=== PATIENT | female | born 1935 | race Two or more races ===

== ENCOUNTER 2023-08-16 08:28 | Emergency (ER) | payer OTHER ==
[~2023-08-16] VITALS: Ht 149.9 cm; Wt 63.7 kg
[2023-08-16 09:16] LABS: Basophils # (auto) 0.1 10 ^3/uL (0-0.2); Basophils % (auto) 1.2 % (0.0-2.0); Eosinophils # (auto) 0.2 10 ^3/uL (0-0.8); Eosinophils % (auto) 3.5 % (0.0-7.0); Hematocrit 40.2 % (36.0-46.0); Lymphocytes # (auto) 2.4 10 ^3/uL (0.4-5.4); Lymphocytes % (auto) 34.8 % (10.0-50.0); Mean Corpuscular Hgb Conc. 32.4 g/dL (32.0-36.0); Mean Corpuscular Volume 83.2 fL (80.0-100.0); Monocytes # (auto) 0.6 10 ^3/uL (0-1.3); Monocytes % (auto) 8.1 % (0.0-12.0); Neutrophils # (auto) 3.6 10 ^3/uL (1.6-8.6); Neutrophils % (auto) 52.4 % (37.0-80.0); Nucleated Red Blood Cells % 0.1 %; Red Blood Cells 4.84 10^6/uL (4.0-5.20); Red Cell Distribution Width 15.1 % (11.8-14.3); White Blood Cell 6.9 10^3/uL (4.4-10.8)
[2023-08-16 09:27] LABS: Albumin 4.5 g/dL (3.2-4.8); Alkaline Phosphatase 80 U/L (46-116); Anion Gap 5 (5-15); Aspartate Aminotransferase 12 U/L (13-40); BUN/Creatinine Ratio 19.6 (10.0-20.0); Bilirubin, Total 0.3 mg/dL (0.2-1.0); Blood Urea Nitrogen 20 mg/dL (9-23); Calcium 9.8 mg/dL (8.5-10.1); Carbon Dioxide 29 mmol/L (20-30); Chloride 105 mmol/L (98-107); Glucose 120 mg/dL (74-106); Potassium 4.4 mmol/L (3.5-5.1); Sodium 139 mmol/L (136-145); Total Protein 7.2 g/dL (5.7-8.2)
[2023-08-16 09:28] LABS: INR 0.99 (0.9-1.15); Partial Thromboplastin Time 29.6 SEC (24.5-34.5); Prothrombin Time 10.4 sec (9.3-11.8)
[2023-08-16 09:30] LABS: Alanine Aminotransferase < 9 U/L (7-40)
[2023-08-16 09:47] LABS: Urine Bacteria NONE SEEN /hpf (None Seen); Urine Blood Negative /uL (Negative); Urine Clarity Clear (Clear); Urine Color Yellow (Yellow); Urine Protein, UAD TRACE (Negative); Urine Specific Gravity 1.022 (1.001-1.035); Urine Urobilinogen Normal (Negative); Urine WBC 2 /hpf (0 - 5); Urine pH 5.5 (5.0-8.0)
[2023-08-16 10:51] LABS: Magnesium 1.7 mg/dL (1.6-2.6)
[2023-08-16 11:04] VITALS: BP 102/55; PULSE 77; RESP 15; TEMP 98; O2SAT 99
== END 2023-08-16 11:07 | disposition home or self-care (01) ==
LOC: ER 08:28
DX: R25.3 Fasciculation (principal); I10 Essential (primary) hypertension; E78.5 Hyperlipidemia, unspecified; Z86.73 Personal history of transient ischemic attack (TIA), and cerebral infarction without residual deficits; Z98.890 Other specified postprocedural states; Z88.8 Allergy status to other drugs, medicaments and biological substances; Z86.2 Personal history of diseases of the blood and blood-forming organs and certain disorders involving the immune mechanism
CPT/HCPCS: 36415; 70450; 71045; 80053; 81001; 83735; 85025; 85610; 85730; 93005

== ENCOUNTER 2023-08-19 03:55 | Emergency (ER) | payer OTHER ==
[2023-08-19 04:22] VITALS: BP 135/58; PULSE 76; RESP 16; TEMP 97.7
[2023-08-19] MEDS ORDERED: LORATADINE 10 MG TAB PO ONE (06:00)
[2023-08-19] MEDS ORDERED: DexAMETHasone SOD PHOS 10MG/1ML VIAL INJ IM ONE (06:00)
[2023-08-19] MEDS ORDERED: LORA10CA PO (06:01)
[2023-08-19] MEDS ORDERED: PRE5T PO (06:01)
[2023-08-19 06:16] VITALS: O2SAT 97
== END 2023-08-19 07:08 | disposition home or self-care (01) ==
LOC: ER 03:55
DX: T78.40XA Allergy, unspecified, initial encounter (principal); I10 Essential (primary) hypertension; E78.5 Hyperlipidemia, unspecified; Z86.73 Personal history of transient ischemic attack (TIA), and cerebral infarction without residual deficits; Z95.1 Presence of aortocoronary bypass graft; Z90.49 Acquired absence of other specified parts of digestive tract; Z95.0 Presence of cardiac pacemaker; Z88.5 Allergy status to narcotic agent; Y92.89 Other specified places as the place of occurrence of the external cause
CPT/HCPCS: 96372; 99283; J1100

== ENCOUNTER 2024-06-17 20:44 | Inpatient (IN) | payer BC, OTHER ==
[~2024-06-17] VITALS: Ht 154.9 cm; Wt 69.9 kg
[~2024-06-17 20:44] MED LIST: ALBU108A5 IN; ATOR-507 PO; CARV3.1240 PO; CEPH500C PO; DOXY100C4 PO; EZET10TA22 PO; LEVO100T8 PO; LORA10CA PO; METF-370 PO; METO5TAB2 PO; OMEP1CAP70 PO; OXYC325T14 PO; PRE5T PO; ZOFR4T PO
[2024-06-17] MEDS: VANCOMYCIN 1GM/200ML 200 ML IV ONE (21:00)
[2024-06-17] MEDS: PIPERACILLIN-TAZO 4.5GM 100 ML IV ONE (21:23)
[2024-06-17] MEDS: ACETAMINOPHEN 500 MG TAB PO ONE (21:23)
[2024-06-17 21:33] LABS: Basophils # (auto) 0 10 ^3/uL (0-0.2); Basophils % (auto) 0.1 % (0.0-2.0); Eosinophils # (auto) 0.3 10 ^3/uL (0-0.8); Eosinophils % (auto) 3.4 % (0.0-7.0); Hematocrit 34.2 % (36.0-46.0); Hemoglobin 11.4 g/dL (12.2-16.2); Lymphocytes # (auto) 1.4 10 ^3/uL (0.4-5.4); Lymphocytes % (auto) 13.8 % (10.0-50.0); Mean Corpuscular Hemoglobin 27.9 pg (28.0-32.0); Mean Corpuscular Hgb Conc. 33.3 g/dL (32.0-36.0); Mean Corpuscular Volume 83.8 fL (80.0-100.0); Monocytes # (auto) 0.7 10 ^3/uL (0-1.3); Monocytes % (auto) 6.4 % (0.0-12.0); Neutrophils # (auto) 7.7 10 ^3/uL (1.6-8.6); Neutrophils % (auto) 76.3 % (37.0-80.0); Nucleated Red Blood Cells % 0.1 %; Platelet Count (auto) 207 10^3/uL (140-450); Red Blood Cells 4.08 10^6/uL (4.0-5.20); Red Cell Distribution Width 14.7 % (11.8-14.3); White Blood Cell 10.1 10^3/uL (4.4-10.8)
[2024-06-17 21:47] LABS: Alanine Aminotransferase 47 U/L (7-40); Albumin 3.7 g/dL (3.2-4.8); Alkaline Phosphatase 190 U/L (46-116); Anion Gap 7 (5-15); Aspartate Aminotransferase 40 U/L (13-40); BUN/Creatinine Ratio 15.6 (10.0-20.0); Bilirubin, Total 0.4 mg/dL (0.2-1.0); Blood Urea Nitrogen 39 mg/dL (9-23); Carbon Dioxide 26 mmol/L (20-30); Chloride 102 mmol/L (98-107); Glucose 95 mg/dL (74-106); Potassium 4.9 mmol/L (3.5-5.1); Sodium 135 mmol/L (136-145); Total Protein 5.9 g/dL (5.7-8.2)
[2024-06-17 21:55] VITALS: RESP 21; O2SAT 100
[2024-06-17] MEDS: NOREPINEPHRINE 8 MG/250ML KIT 250 ML IV SCH (23:30)
[2024-06-17] MEDS: NOREPINEPHRINE 8 MG/250ML KIT 250 ML IV ONE (23:30)
[2024-06-18 01:20] VITALS: RESP 23; O2SAT 100
[2024-06-18] MEDS: ASPirin 325 MG TAB PO ONE (01:38)
[2024-06-18 02:34] LABS: COVID19 ANTIGEN SOFIA FIA NEGATIVE (NEGATIVE); Rapid Influenza A Negative (Negative); Rapid Influenza B Negative (Negative)
[2024-06-18 02:57] LABS: Urine Bacteria None Seen /hpf (None Seen)
[2024-06-18 03:07] LABS: Urine Blood Negative /uL (Negative); Urine Clarity Turbid (Clear); Urine Color Yellow (Yellow); Urine Protein, UAD 1+ (Negative); Urine Urobilinogen 3 mg/dL (Negative); Urine WBC 15 /hpf (0 - 5)
[2024-06-18 03:11] LABS: Urine Specific Gravity 1.045 (1.001-1.035)
[2024-06-18] MEDS ORDERED: DOCUSATE SOD 100 MG CAP PO PRN (03:15)
[2024-06-18] MEDS ORDERED: NITROGLYCERIN 0.4 MG SL TAB SL PRN (03:15)
[2024-06-18] MEDS ORDERED: MORPHINE SULFATE INJ 2 MG/ml SYRG IV PRN ×2 (03:15)
[2024-06-18] MEDS ORDERED: HYDROcodone-ACET 5/325MG TAB PO PRN (03:15)
[2024-06-18] MEDS: NOREPINEPHRINE 8 MG/250ML KIT 250 ML IV SCH (03:30)
[2024-06-18] MEDS: SODIUM CHLORIDE 0.9% 1,000 ML IV SCH (03:51)
[2024-06-18] MEDS: ACETAMINOPHEN 325 MG TAB PO PRN (07:11)
[2024-06-18 07:15] VITALS: PULSE 68; RESP 20; O2SAT 100
[2024-06-18] MEDS: PIPERACILLIN-TAZOB 3.375GM 100 ML IV SCH (08:12)
[2024-06-18 15:45] LABS: Chloride 103 mmol/L (98-107); Potassium 4.5 mmol/L (3.5-5.1); Sodium 133 mmol/L (136-145)
[2024-06-18 15:46] LABS: Anion Gap 12 (5-15); Calcium 8.5 mg/dL (8.7-10.4); Carbon Dioxide 18 mmol/L (20-30)
[2024-06-18 15:51] LABS: BUN/Creatinine Ratio 14.1 (10.0-20.0); Blood Urea Nitrogen 43 mg/dL (9-23); Glucose 119 mg/dL (74-106)
[2024-06-18 15:52] LABS: Magnesium 1.8 mg/dL (1.6-2.6)
[2024-06-18 15:54] LABS: Phosphorus 4.9 mg/dL (2.4-5.1)
[2024-06-18 19:29] VITALS: PULSE 70; RESP 16; O2SAT 100
[2024-06-19] MEDS: ONDANSETRON HCL 4 MG/2 ML VIAL IV PRN (03:20)
[2024-06-19] MEDS: LEVOTHYROXINE SODIUM 100 MCG TAB PO SCH (05:45)
[2024-06-19 05:59] LABS: Basophils # (auto) 0 10 ^3/uL (0-0.2); Basophils % (auto) 0.4 % (0.0-2.0); Eosinophils # (auto) 0.5 10 ^3/uL (0-0.8); Eosinophils % (auto) 5.6 % (0.0-7.0); Hematocrit 32.4 % (36.0-46.0); Hemoglobin 10.4 g/dL (12.2-16.2); Lymphocytes # (auto) 1.7 10 ^3/uL (0.4-5.4); Lymphocytes % (auto) 17.8 % (10.0-50.0); Mean Corpuscular Hgb Conc. 32.3 g/dL (32.0-36.0); Mean Corpuscular Volume 86.6 fL (80.0-100.0); Monocytes # (auto) 0.6 10 ^3/uL (0-1.3); Monocytes % (auto) 6.4 % (0.0-12.0); Neutrophils # (auto) 6.7 10 ^3/uL (1.6-8.6); Neutrophils % (auto) 69.8 % (37.0-80.0); Platelet Count (auto) 170 10^3/uL (140-450); Red Blood Cells 3.74 10^6/uL (4.0-5.20); White Blood Cell 9.6 10^3/uL (4.4-10.8)
[2024-06-19 06:20] LABS: Alanine Aminotransferase 25 U/L (7-40); Albumin 3.3 g/dL (3.2-4.8); Alkaline Phosphatase 132 U/L (46-116); Anion Gap 14 (5-15); Aspartate Aminotransferase 15 U/L (13-40); BUN/Creatinine Ratio 14.1 (10.0-20.0); Blood Urea Nitrogen 39 mg/dL (9-23); Carbon Dioxide 13 mmol/L (20-30); Chloride 108 mmol/L (98-107); Glucose 83 mg/dL (74-106); Potassium 4.2 mmol/L (3.5-5.1); Sodium 135 mmol/L (136-145)
[2024-06-19 06:21] LABS: Bilirubin, Total 0.3 mg/dL (0.2-1.0); Total Protein 5.4 g/dL (5.7-8.2)
[2024-06-19 07:30] VITALS: PULSE 70; RESP 15; O2SAT 98
[2024-06-19 07:46] LABS: Urine Bacteria None Seen /hpf (None Seen)
[2024-06-19 08:07] LABS: Urine Blood 2+ /uL (Negative); Urine Budding Yeast MODERATE /hpf (None Seen); Urine Clarity Turbid (Clear); Urine Color Light-Yellow (Yellow); Urine Protein, UAD 1+ (Negative); Urine Specific Gravity 1.017 (1.001-1.035); Urine Urobilinogen Normal (Negative); Urine WBC 15 /hpf (0 - 5); Urine WBC Clumps PRESENT /hpf (None Seen); Urine pH 5.5 (5.0-9.0)
[2024-06-19] MEDS: ASPirin 81 mg TAB PO SCH (10:00)
[2024-06-19] MEDS: ENOXAPARIN SOD 30 MG/0.3 ML SYRINGE SC SCH (10:00)
[2024-06-19 19:35] VITALS: PULSE 68; RESP 14; O2SAT 100
[2024-06-20 06:34] LABS: Alanine Aminotransferase 20 U/L (7-40); Albumin 3.4 g/dL (3.2-4.8); Alkaline Phosphatase 116 U/L (46-116); Anion Gap 8 (5-15); Aspartate Aminotransferase 11 U/L (13-40); Bilirubin, Total 0.2 mg/dL (0.2-1.0); Blood Urea Nitrogen 33 mg/dL (9-23); Carbon Dioxide 21 mmol/L (20-30); Chloride 110 mmol/L (98-107); Glucose 83 mg/dL (74-106); Potassium 3.9 mmol/L (3.5-5.1); Sodium 139 mmol/L (136-145); Total Protein 5.5 g/dL (5.7-8.2)
[2024-06-20 06:44] LABS: Basophils # (auto) 0 10 ^3/uL (0-0.2); Basophils % (auto) 0.3 % (0.0-2.0); Eosinophils # (auto) 0.4 10 ^3/uL (0-0.8); Eosinophils % (auto) 5.9 % (0.0-7.0); Hematocrit 30.9 % (36.0-46.0); Hemoglobin 10.2 g/dL (12.2-16.2); Lymphocytes # (auto) 1.3 10 ^3/uL (0.4-5.4); Lymphocytes % (auto) 20.4 % (10.0-50.0); Mean Corpuscular Hgb Conc. 32.9 g/dL (32.0-36.0); Mean Corpuscular Volume 84.9 fL (80.0-100.0); Monocytes # (auto) 0.4 10 ^3/uL (0-1.3); Monocytes % (auto) 6.3 % (0.0-12.0); Neutrophils # (auto) 4.3 10 ^3/uL (1.6-8.6); Neutrophils % (auto) 67.1 % (37.0-80.0); Platelet Count (auto) 156 10^3/uL (140-450); Red Blood Cells 3.64 10^6/uL (4.0-5.20); Red Cell Distribution Width 14.5 % (11.8-14.3); White Blood Cell 6.3 10^3/uL (4.4-10.8)
[2024-06-20 06:53] LABS: Calcium 8.6 mg/dL (8.7-10.4)
[2024-06-20 07:31] VITALS: PULSE 60; RESP 17; O2SAT 98
[2024-06-20 11:56] VITALS: O2SAT 95
[2024-06-20] MEDS: SODIUM CHLORIDE 0.9% 1,000 ML IV SCH (12:00)
[2024-06-20 13:00] VITALS: BP 128/42; PULSE 65; RESP 18; TEMP 98.3; O2SAT 100
[2024-06-20 17:00] VITALS: BP 97/31; PULSE 63; RESP 20; TEMP 97.8; O2SAT 100
[2024-06-20 20:00] VITALS: PULSE 74; PULSE 82; RESP 18; O2SAT 95
[2024-06-20 21:00] VITALS: BP 125/39; PULSE 65; RESP 18; TEMP 97.8; O2SAT 100
[2024-06-21] VITALS (8 sets, daily range): BP systolic 100–133; BP diastolic 48–65; PULSE 60–77; RESP 16–21; TEMP 97–98.7; O2SAT 95–99
[2024-06-21 07:24] LABS: Chloride 110 mmol/L (98-107); Potassium 3.6 mmol/L (3.5-5.1); Sodium 138 mmol/L (136-145)
[2024-06-21 07:25] LABS: Anion Gap 5 (5-15); Carbon Dioxide 23 mmol/L (20-30)
[2024-06-21 07:26] LABS: Calcium 8.4 mg/dL (8.7-10.4)
[2024-06-21 07:31] LABS: BUN/Creatinine Ratio 16.5 (10.0-20.0); Blood Urea Nitrogen 21 mg/dL (9-23); Glucose 100 mg/dL (74-106)
[2024-06-21] MEDS: SODIUM CHLORIDE 0.9% 1,000 ML IV SCH (19:30)
[2024-06-22] MEDS: FLUCONAZOLE 100 MG TAB PO ONE (00:48)
[2024-06-22 08:00] VITALS: PULSE 61; RESP 18
[2024-06-22 09:00] VITALS: BP 114/51; PULSE 64; RESP 21; TEMP 97.5; O2SAT 95
[2024-06-22 11:13] LABS: Chloride 108 mmol/L (98-107); Potassium 3.8 mmol/L (3.5-5.1); Sodium 138 mmol/L (136-145)
[2024-06-22 11:14] LABS: Anion Gap 7 (5-15); Calcium 8.9 mg/dL (8.7-10.4); Carbon Dioxide 23 mmol/L (20-30)
[2024-06-22 11:19] LABS: BUN/Creatinine Ratio 11.7 (10.0-20.0); Blood Urea Nitrogen 12 mg/dL (9-23); Glucose 114 mg/dL (74-106)
[2024-06-22 11:40] LABS: Basophils # (auto) 0 10 ^3/uL (0-0.2); Basophils % (auto) 0.6 % (0.0-2.0); Eosinophils # (auto) 0.4 10 ^3/uL (0-0.8); Eosinophils % (auto) 4.9 % (0.0-7.0); Hematocrit 32.6 % (36.0-46.0); Hemoglobin 10.7 g/dL (12.2-16.2); Lymphocytes % (auto) 24.1 % (10.0-50.0); Mean Corpuscular Hemoglobin 28.3 pg (28.0-32.0); Mean Corpuscular Hgb Conc. 32.9 g/dL (32.0-36.0); Mean Corpuscular Volume 86.2 fL (80.0-100.0); Monocytes # (auto) 0.7 10 ^3/uL (0-1.3); Monocytes % (auto) 8.3 % (0.0-12.0); Neutrophils # (auto) 5.2 10 ^3/uL (1.6-8.6); Neutrophils % (auto) 62.1 % (37.0-80.0); Nucleated Red Blood Cells % 0.1 %; Platelet Count (auto) 154 10^3/uL (140-450); Red Blood Cells 3.78 10^6/uL (4.0-5.20); Red Cell Distribution Width 15.3 % (11.8-14.3); White Blood Cell 8.4 10^3/uL (4.4-10.8)
[2024-06-22 13:00] VITALS: BP 116/44; PULSE 64; RESP 20; TEMP 98.2; O2SAT 93
[2024-06-22 17:00] VITALS: BP 127/53; PULSE 60; RESP 17; TEMP 97.3; O2SAT 100
[2024-06-22 20:00] VITALS: PULSE 61; PULSE 66; RESP 18
[2024-06-22 21:00] VITALS: BP 116/46; PULSE 67; RESP 14; TEMP 97.7; O2SAT 100
[2024-06-23 05:00] VITALS: BP 105/56; PULSE 56; RESP 18; TEMP 97; O2SAT 99
[2024-06-23 08:00] VITALS: PULSE 64; RESP 18
[2024-06-23 09:00] VITALS: PULSE 65; RESP 17; TEMP 98.1; O2SAT 96
[2024-06-23 13:00] VITALS: BP 122/42; PULSE 67; RESP 19; TEMP 98.1; O2SAT 99
[2024-06-23 17:00] VITALS: BP 140/58; PULSE 77; RESP 19; TEMP 97.6; O2SAT 98
[2024-06-23 20:00] VITALS: PULSE 69
[2024-06-24] VITALS (8 sets, daily range): BP systolic 108–150; BP diastolic 33–64; PULSE 60–73; RESP 15–20; TEMP 97.3–98.3; O2SAT 95–100
[2024-06-25] VITALS (8 sets, daily range): BP systolic 117–156; BP diastolic 36–71; PULSE 66–81; RESP 14–20; TEMP 97.4–99.1; O2SAT 90–100
[2024-06-25] MEDS: SODIUM CHLORIDE 0.9% 1,000 ML IV SCH (00:45)
[2024-06-25] MEDS: PIPERACILLIN-TAZOB 3.375GM 100 ML IV SCH (02:06)
[2024-06-25 07:31] LABS: Basophils # (auto) 0.1 10 ^3/uL (0-0.2); Basophils % (auto) 1.2 % (0.0-2.0); Eosinophils # (auto) 0.4 10 ^3/uL (0-0.8); Eosinophils % (auto) 6.2 % (0.0-7.0); Hematocrit 28.6 % (36.0-46.0); Hemoglobin 9.7 g/dL (12.2-16.2); Lymphocytes # (auto) 1.9 10 ^3/uL (0.4-5.4); Lymphocytes % (auto) 26.7 % (10.0-50.0); Mean Corpuscular Hemoglobin 28.5 pg (28.0-32.0); Mean Corpuscular Volume 83.9 fL (80.0-100.0); Monocytes # (auto) 0.9 10 ^3/uL (0-1.3); Monocytes % (auto) 12.1 % (0.0-12.0); Neutrophils # (auto) 3.9 10 ^3/uL (1.6-8.6); Neutrophils % (auto) 53.8 % (37.0-80.0); Nucleated Red Blood Cells % 0.1 %; Platelet Count (auto) 198 10^3/uL (140-450); Red Blood Cells 3.42 10^6/uL (4.0-5.20); Red Cell Distribution Width 14.7 % (11.8-14.3); White Blood Cell 7.2 10^3/uL (4.4-10.8)
[2024-06-25 07:32] LABS: Chloride 107 mmol/L (98-107); Potassium 3.9 mmol/L (3.5-5.1); Sodium 140 mmol/L (136-145)
[2024-06-25 07:33] LABS: Anion Gap 5 (5-15); Calcium 8.7 mg/dL (8.7-10.4); Carbon Dioxide 28 mmol/L (20-30)
[2024-06-25 07:38] LABS: Glucose 99 mg/dL (74-106)
[2024-06-25 08:32] LABS: BUN/Creatinine Ratio 6.2 (10.0-20.0); Blood Urea Nitrogen < 5 mg/dL (9-23)
[2024-06-26] VITALS (8 sets, daily range): BP systolic 100–152; BP diastolic 48–67; PULSE 69–76; RESP 18–20; TEMP 97.6–98.6; O2SAT 90–100
[2024-06-26] MEDS: FUROSEMIDE 20 MG TAB PO ONE (17:49)
[2024-06-27] VITALS (8 sets, daily range): BP systolic 94–144; BP diastolic 37–86; PULSE 62–92; RESP 17–21; TEMP 97.9–98.1; O2SAT 92–100
[2024-06-27 06:59] LABS: Basophils # (auto) 0.1 10 ^3/uL (0-0.2); Eosinophils # (auto) 0.4 10 ^3/uL (0-0.8); Eosinophils % (auto) 6.2 % (0.0-7.0); Hematocrit 30.4 % (36.0-46.0); Hemoglobin 10.2 g/dL (12.2-16.2); Lymphocytes # (auto) 1.3 10 ^3/uL (0.4-5.4); Lymphocytes % (auto) 21.2 % (10.0-50.0); Mean Corpuscular Hemoglobin 28.2 pg (28.0-32.0); Mean Corpuscular Hgb Conc. 33.5 g/dL (32.0-36.0); Monocytes # (auto) 0.7 10 ^3/uL (0-1.3); Monocytes % (auto) 12.2 % (0.0-12.0); Neutrophils # (auto) 3.6 10 ^3/uL (1.6-8.6); Neutrophils % (auto) 59.4 % (37.0-80.0); Nucleated Red Blood Cells % 0.1 %; Platelet Count (auto) 208 10^3/uL (140-450); Red Blood Cells 3.62 10^6/uL (4.0-5.20); Red Cell Distribution Width 14.8 % (11.8-14.3); White Blood Cell 6.1 10^3/uL (4.4-10.8)
[2024-06-27 07:11] LABS: Anion Gap 5 (5-15); Carbon Dioxide 35 mmol/L (20-30); Chloride 101 mmol/L (98-107); Potassium 3.3 mmol/L (3.5-5.1); Sodium 141 mmol/L (136-145)
[2024-06-27 07:12] LABS: Calcium 8.6 mg/dL (8.7-10.4)
[2024-06-27 07:17] LABS: BUN/Creatinine Ratio 5.8 (10.0-20.0); Blood Urea Nitrogen 5 mg/dL (9-23); Glucose 87 mg/dL (74-106)
[2024-06-27] MEDS: FUROSEMIDE 20 MG TAB PO SCH (09:47)
[2024-06-27] MEDS: FLUCONAZOLE 100 MG TAB PO SCH (09:48)
[2024-06-27 15:30] LABS: COVID19 ANTIGEN SOFIA FIA NEGATIVE (NEGATIVE)
[2024-06-27] MEDS: Ensure Enlive Strawberry 8oz Bottle PO SCH (18:00)
[2024-06-28] VITALS (7 sets, daily range): BP systolic 113–148; BP diastolic 39–67; PULSE 63–89; RESP 16–18; TEMP 97.3–98.7; O2SAT 92–99
[2024-06-29] VITALS (9 sets, daily range): BP systolic 104–133; BP diastolic 37–95; PULSE 63–78; RESP 16–20; TEMP 97.8–98.2; O2SAT 88–99
[2024-06-30 01:00] VITALS: BP 119/46; PULSE 77; RESP 16; TEMP 98.9; O2SAT 100
[2024-06-30 05:00] VITALS: BP 133/56; PULSE 63; RESP 20; TEMP 97.9; O2SAT 100
[2024-06-30 08:00] VITALS: PULSE 43; PULSE 71; RESP 17; O2SAT 91
[2024-06-30 09:10] VITALS: BP 157/56; PULSE 71; RESP 17; TEMP 98; O2SAT 91
[2024-06-30] MEDS ORDERED: MAGN400T6 PO (11:52)
[2024-06-30] MEDS ORDERED: [UNRECOGNIZED DRUG - CODE] PO (11:52)
[2024-06-30 13:21] VITALS: BP 119/51; PULSE 74; RESP 17; TEMP 98; O2SAT 91
== END 2024-06-30 14:45 | disposition home or self-care (01) | DRG 871 ==
LOC: ER 20:44 → EDBD 20:44 → TELE 06-18 03:17 → TELE-CENTR 06-20 11:28
PROVIDERS: ADMIT Internal Medicine; ATTEND Nurse Practitioner
PROC: 4B02XSZ Measurement of Cardiac Pacemaker, External Approach (ICD-10-PCS; principal; 2024-06-23)
DX: A41.9 Sepsis, unspecified organism (principal); G93.41 Metabolic encephalopathy; N17.0 Acute kidney failure with tubular necrosis; R65.21 Severe sepsis with septic shock; I21.A1 Myocardial infarction type 2; N39.0 Urinary tract infection, site not specified; E87.1 Hypo-osmolality and hyponatremia; I50.32 Chronic diastolic (congestive) heart failure; I13.0 Hypertensive heart and chronic kidney disease with heart failure and stage 1 through stage 4 chronic kidney disease, or unspecified chronic kidney disease; D50.9 Iron deficiency anemia, unspecified; E03.9 Hypothyroidism, unspecified; E78.5 Hyperlipidemia, unspecified; I48.91 Unspecified atrial fibrillation; I25.10 Atherosclerotic heart disease of native coronary artery without angina pectoris; N18.31 Chronic kidney disease, stage 3a; E66.01 Morbid (severe) obesity due to excess calories; I27.20 Pulmonary hypertension, unspecified; Z20.822 Contact with and (suspected) exposure to COVID-19; K21.9 Gastro-esophageal reflux disease without esophagitis; R62.7 Adult failure to thrive; I08.1 Rheumatic disorders of both mitral and tricuspid valves; R26.9 Unspecified abnormalities of gait and mobility; Z95.1 Presence of aortocoronary bypass graft; Z88.5 Allergy status to narcotic agent; Z86.73 Personal history of transient ischemic attack (TIA), and cerebral infarction without residual deficits; Z90.49 Acquired absence of other specified parts of digestive tract; Z95.0 Presence of cardiac pacemaker; Z87.891 Personal history of nicotine dependence; Z79.82 Long term (current) use of aspirin; Z68.29 Body mass index [BMI] 29.0-29.9, adult; Z95.2 Presence of prosthetic heart valve
CPT/HCPCS: 36415; 71045; 71250; 74176; 76775; 80048; 80053; 81001; 83036; 83605; 83735; 83880; 84100; 84439; 84443; 84484; 85025; 87040; 87086; 87088; 87426; 87804; 93005; 93306; 96365; 97110; 97116; 97163; 97530; 99291; G0378; J2405; J2543

== ENCOUNTER 2024-09-07 15:17 | Inpatient (IN) | payer BC, MEDICAID ==
[~2024-09-07] VITALS: Ht 144.8 cm; Wt 69.0 kg
[~2024-09-07 15:17] MED LIST changes: -LORA10CA PO; +MAGN400T6 PO; -PRE5T PO; +[UNRECOGNIZED DRUG - CODE] PO
--- NOTE | 2024-09-07 15:31 | ED.PDOC ---
HPI Comments pt had a pacer placed in jun. she fell afterward, but did not have pain till today Chief Complaint: Chest Pain Comments pain is worsened by movement. no injuries Time Seen by MD: 15:25 Primary Care Provider: BARRIE Allergies: Coded Allergies: Morphine (Verified Allergy, Unknown, 08/16/23) Home Meds Active Scripts Nutritional Supplements (Boost) But Pecn Liq, 1 PECN PO DAILY for 30 Days, #30 LIQ 3 Refills requesting chocolate Prov:JO ORDONEZ José Miguel BRAIDER OPERATOR 06/30/24 Magnesium Oxide (Magnesium Oxide) 400 Mg Tab, 400 MG PO DAILY for 30 Days, #30 TAB Prov:JO ORDONEZ José Miguel BRAIDER OPERATOR 06/30/24 Reported Medications Doxycycline Hyclate (Doxycycline Hyclate) 100 Mg Cap, 1 TAB PO BID for 7 Days, #14 06/20/24 Oxycodone W/ Acetaminophen (Apap/Oxycodone) 1 Tab Tab, 1 TAB PO UD for 7 Days, #30 06/20/24 Ondansetron Odt 4MG Tab (ZOFRAN PO) 4 Mg Tb, 4 MG PO UD for 15 Days, #30 ODT TAB-DISSOLVE IN MOUTH, THEN SWALLOW 06/20/24 Albuterol Sulfate (Albuterol Sulfate Hfa) 108 Mcg/Act Aer, 108 MCG IN UD for 33 Days, #6.7 06/20/24 Metoclopramide Hcl (Metoclopramide Hcl) 5 Mg Tab, 5 MG PO UD for 7 Days, #30 06/20/24 Cephalexin Monohydrate (Cephalexin) 500 Mg Cap, 1 CAP PO QID for 7 Days, #28 06/20/24 Carvedilol (Carvedilol) 3.125 Mg Tab, 1 TAB PO BID for 90 Days, #180 06/20/24 Levothyroxine Sodium (Levothyroxine Sodium) 100 Mcg Tab, 1 TAB PO DAILY for 90 Days, #90 06/20/24 Atorvastatin Calcium (Lipitor) 40 Mg Tab, 1 TAB PO DAILY for 90 Days, #90 06/20/24 Omeprazole (Omeprazole Dr) 20 Mg Cap, 1 CAP PO BID for 30 Days, #60 06/20/24 Ezetimibe (Zetia) 10 Mg Tab, 1 TAB PO DAILY for 30 Days, #30 06/20/24 Metformin Hydrochloride (Metformin Hcl) 500 Mg Tab, 1 TAB PO DAILY for 30 Days, #30 06/20/24 Information Source: Patient Mode of Arrival: Ambulatory Severity: Moderate Timing: Hours Duration: Since onset Location: Chest (L) Quality: Sharp Onset: At Rest Cardiac Risk Factors: Hyperlipidemia, HTN, Diabetes PE Risk Factors: None History of: None Modifying Factors: Movement, Other (palpation) Associated Signs and Symptoms: SOB, Other (bilatereal hands numb) Past Medical History PAST MEDICAL HISTORY: AFIB, High Lipids, HTN, Thyroid, TIA, UTI'S Past Medical History (Other): CTS, bilateral Surgical History: CABG, Cholecystectomy, Pacemaker, PTCA CASER IN History: Denies all CASER IN Hx Family History Family History: Reviewed,noncontributory to illness Social History Smoker: Non-Smoker Alcohol: Denies ETOH Use Drugs: Denies Drug Use Lives In: Home Constitutional: denies: chills, diaphoresis, fatigue, fever, malaise, sweats, weakness, others EENTM: denies: blurred vision, double vision, ear bleeding, ear discharge, ear drainage, ear pain, ear ringing, eye pain, eye redness, hearing loss, mouth pain, mouth swelling, nasal discharge, nose bleeding, nose congestion, nose pain, photophobia, tearing, throat pain, throat swelling, voice changes, others Respiratory: denies: cough, hemoptysis, orthopnea, SOB at rest, shortness of breath, SOB with excertion, stridor, wheezing, others Cardiovascular: reports: chest pain; denies: dizzy spells, diaphoresis, Dyspnea on exertion, edema, irregular heart beat, left arm pain, lightheadedness, p alpitations, PND, syncope, others Gastrointestinal: denies: abdomen distended, abdominal pain, blood streaked bowels, constipated, diarrhea, dysphagia, difficulty swallowing, hematemesis, melena, nausea, poor appetite, poor fluid intake, rectal bleeding, rectal pain, vomiting, others Genitourinary: denies: abnormal vagina bleeding, burning, dyspareunia, dysuria, flank pain, frequency, hematuria, incontinence, pain, , vagina discharge, urgency, others Neurological: reports: numbness (hands); denies: dizziness, fainting, headache, left sided numbness, left sided weakness, paresthesia, pre-existing deficit, right sided numbness, right sided weakness, seizure, speech problems, tingling, tremors, weakness, others Musculoskeletal: denies: back pain, gout, joint pain, joint swelling, muscle pain, muscle stiffness, neck pain, others Integumetry: denies: bruises, change in color, change in hair/nails, dryness, laceration, lesions, lumps, rash, wounds, others Allergic/Immunocompromised: denies: Difficulty Healing, Frequent Infections, Hives, Itching, others Hematologic/Lymphatic: denies: anemia, blood clots, easy bleeding, easy bruising, swollen glands, others Endocrine: denies: excessive hunger, excessive sweating, excessive thirst, excessive urination, flushing, intolerance to cold, intolerance to heat, unexplained weight gain, unexplained weight loss, others Psychiatric: denies: anxiety, bipolar disorder, depression, hopeless, panic disorder, schizophrenia, sleepless, suicidal, others All Other Systems: Reviewed and Negative Physical Exam General Appearance: No Apparent Distress, Normal HEENT: Normal ENT Inspection, Pharynx Normal, TMs Normal Neck: Full Range of Motion, Non-Tender, Normal, Normal Inspection Respiratory: Chest Non-Tender, Lungs Clear, No Accessory Muscle Use, No Respiratory Distress, Normal Breath Sounds Cardiovascular: No Edema, No JVD, No Murmur, No Gallop, Normal Peripheral Pulses, Regular Rate/Rhythm Breast Exam: Deferred Gastrointestinal: No Organomegaly, Non Tender, No Pulsatile Mass, Normal Bowel Sounds, Soft Genitalia: Deferred Pelvic: Deferred Rectal: Deferred Extremities: No calf tenderness, Normal capillary refill, Normal inspection, Normal range of motion, Non-tender, No pedal edema Musculoskeletal : Extremity Location: Chest Apperance: Normal, Tenderness: Moderate Neurologic: Alert, laundry operator II-XII nml as Tested, No Motor Deficits, Normal Affect, Normal Mood, No Sensory Deficits Cerebellar Function: Normal Reflexes: Normal Skin: Dry, Normal Color, Warm Lymphatic: No Adenopathy EKG EKG : Pulse Rate (adult): 73 [place]: Normal Cardiac Rhythm: NSR Block: RBBB Hypertrophy: LVH ST: Normal Was a procedure done? Was a procedure done?: No CP Differential Dx Differential Diagnosis: N/A Differential Diagnosis: Angina, Aortic dissection, Chest Wall Pain, Cholelithiasis, Costochondritis, Esophageal reflux/spasm, Gastritis, Myocardial Infarction, Pericarditis, Pneumonia, Pneumothorax, Pulmonary Embolus X-Ray, Labs, Meds, VS Vital Signs Date Time Temp Pulse Resp B/P (MAP) Pulse Ox O2 Delivery O2 Flow Rate FiO2 09/07/24 20:18 97.7 70 16 132/69 (90) 96 97.7 09/07/24 19:54 73 09/07/24 16:30 71 09/07/24 15:42 98.0 74 18 151/75 (100) 96 09/07/24 15:22 73 Lab Test 09/07/24 18:25 09/07/24 16:33 09/07/24 16:32 09/07/24 15:25 Range/Units Troponin I High Sensitivity 21 20 19 </=34 ng/L Urine Color Colorless Yellow Urine Clarity Clear Clear Urine pH 6.5 5.0-9.0 Urine Specific [place] 1.007 1.001-1.035 Urine Protein Negative Negative Urine Ketones Negative Negative Urine Blood Negative Negative /uL Urine Nitrite Negative Negative Urine Bilirubin Negative Negative Urine Urobilinogen Normal Negative mg/dL Urine Leukocyte Esterase Negative Negative /uL Urine RBC <1 0 - 4 /hpf Urine WBC 1 0 - 5 /hpf Urine Squamous Epithelial Cells Few <5 /hpf Urine Bacteria Few H None Seen /hpf Urine Glucose Normal Normal mg/dL White Blood Count 7.5 4.4-10.8 10^3/uL Red Blood Count 4.33 4.0-5.20 10^6/uL Hemoglobin 11.7 L 12.2-16.2 g/dL Hematocrit 36.2 36.0-46.0 % Mean Corpuscular Volume 83.7 80.0-100.0 fL Mean Corpuscular Hemoglobin 27.1 L 28.0-32.0 pg Mean Corpuscular Hemoglobin Concent 32.4 32.0-36.0 g/dL Red Cell Distribution Width 14.8 H 11.8-14.3 % Platelet Count 193 140-450 10^3/uL Mean Platelet Volume 6.8 L 6.9-10.8 fL Neutrophils (%) (Auto) 53.9 37.0-80.0 % Lymphocytes (%) (Auto) 33.8 10.0-50.0 % Monocytes (%) (Auto) 8.2 0.0-12.0 % Eosinophils (%) (Auto) 3.2 0.0-7.0 % Basophils (%) (Auto) 0.9 0.0-2.0 % Neutrophils # (Auto) 4.1 1.6-8.6 10 ^3/uL Lymphocytes # (Auto) 2.6 0.4-5.4 10 ^3/uL Monocytes # (Auto) 0.6 0-1.3 10 ^3/uL Eosinophils # (Auto) 0.2 0-0.8 10 ^3/uL Basophils # (Auto) 0.1 0-0.2 10 ^3/uL Nucleated Red Blood Cells 0.1 % Sodium Level 139 136-145 mmol/L Potassium Level 4.1 3.5-5.1 mmol/L Chloride Level 106 98-107 mmol/L Carbon Dioxide Level 27 20-31 mmol/L Anion Gap 6 5-15 Blood Urea Nitrogen 19 9-23 mg/dL Creatinine 0.95 0.550-1.02 mg/dL Glomerular Filtration Rate Calc 57 >90 mL/min BUN/Creatinine Ratio 20.0 10.0-20.0 Serum Glucose 104 74-106 mg/dL Calcium Level 9.9 8.7-10.4 mg/dL [place] [id number] Ph: [phone] DIAGNOSTIC IMAGING Diagnostic Imaging Report : [id number] Signed PATIENT: LISA MACK ACCT: [id number] UNIT: [id number] : 1935 LOC: ER ROOM / BED: / AGE / SEX: 89 / F ADM STATUS: REG ER SERVICE 1527 ORDERING PHYSICIAN: MATIAS BAÑUELOS MD PROCEDURE(s): CXRP - CHEST PORTABLE REASON: cp ORDER NUMBER(s): [id number], ACCESSION NUMBER(s): [id number] XY CHEST PORTABLE, HISTORY: cp COMPARISON: XY CHEST PORTABLE on DOS: 06/17/24, XY CHEST XRAY 1 VIEW on DOS: 08/16/23 XY CHEST PORTABLE on DOS: 06/17/24, XY CHEST XRAY 1 VIEW on DOS: 08/16/23 TECHNICAL DATA: 1 view of the chest was obtained. FINDINGS: Lines and tubes: There is a cardiac pacer. Cardiomediastinal silhouette: normal Pulmonary vasculature: normal Lung expansion: normal Lung airspace: normal Lung interstitium: normal Pleura: normal Pneumothorax: no Bones: Unremarkable Other: Sternotomy wires are noted. IMPRESSION: No acute intrathoracic abnormality. ATED BY: JAMIR CHARLTON MD DICTATED DATE/TIME: 09/07/241611 SIGNED BY: JAMIR CHARLTON MD SIGNED DATE/TIME: 09/07/241611 CC: Time of 1ST Reevaluation: 19:50 Reevaluation 1ST: Improved Patient Education/Counseling: Diagnosis, Treatment, Prognosis, Need For Follow Up Family Education/Counseling: No Family Present Additional Information pt has a history of a pacer, CABG, TIA, afib, HLD, htn, is here for chest pain. she will be admitted for r/o MS her last admission was in jun, per med record review i communicated with medical personnel and consultants Departure 1 Departure Time of Disposition: 19:54 Impression: Primary Impression: Chest pain Qualified Codes: R07.9 - Chest pain, unspecified Disposition: ADMITTED INPATIENT Admit to: Tele Condition: Stable Critical Care Note Critical Care Time?: Yes (55 min-critical care time only) Critical care comment: due to concerns for deterioration of pt's condition, the care required my highest level of attention and readiness. i assessed the pt, ordered the appropriate tests and treatments, reassessed the response to treatments, communicated with medical personnel, consultants, and formulated a treatment plan Stability Stability form required: No Heart Score Heart Score: Heart Score Response (Comments) Value History Moderate Suspicious 1 EKG Normal 0 Age >65 2 Risk Factors >3 or Hx ASHD 2 Troponin Normal limit 0 Total 5 I personally scribed for MATIAS BAÑUELOS MD ([email or web address]) on 09/07/24 at 20:00. Electronically submitted by Krish Knott ([email or web address]). MATIAS BAÑUELOS MD Sep 07, 2024 15:30
[2024-09-07 15:45] LABS: Basophils # (auto) 0.1 10 ^3/uL (0-0.2); Basophils % (auto) 0.9 % (0.0-2.0); Eosinophils # (auto) 0.2 10 ^3/uL (0-0.8); Eosinophils % (auto) 3.2 % (0.0-7.0); Hematocrit 36.2 % (36.0-46.0); Hemoglobin 11.7 g/dL (12.2-16.2); Lymphocytes # (auto) 2.6 10 ^3/uL (0.4-5.4); Lymphocytes % (auto) 33.8 % (10.0-50.0); Mean Corpuscular Hemoglobin 27.1 pg (28.0-32.0); Mean Corpuscular Hgb Conc. 32.4 g/dL (32.0-36.0); Mean Corpuscular Volume 83.7 fL (80.0-100.0); Monocytes # (auto) 0.6 10 ^3/uL (0-1.3); Monocytes % (auto) 8.2 % (0.0-12.0); Neutrophils # (auto) 4.1 10 ^3/uL (1.6-8.6); Neutrophils % (auto) 53.9 % (37.0-80.0); Nucleated Red Blood Cells % 0.1 %; Platelet Count (auto) 193 10^3/uL (140-450); Red Blood Cells 4.33 10^6/uL (4.0-5.20); Red Cell Distribution Width 14.8 % (11.8-14.3); White Blood Cell 7.5 10^3/uL (4.4-10.8)
[2024-09-07 15:51] LABS: Chloride 106 mmol/L (98-107); Potassium 4.1 mmol/L (3.5-5.1); Sodium 139 mmol/L (136-145)
[2024-09-07 15:52] LABS: Anion Gap 6 (5-15); Calcium 9.9 mg/dL (8.7-10.4); Carbon Dioxide 27 mmol/L (20-31)
[2024-09-07 15:57] LABS: Blood Urea Nitrogen 19 mg/dL (9-23); Glucose 104 mg/dL (74-106)
--- NOTE | 2024-09-07 16:14 | DVH ---
XY CHEST PORTABLE, HISTORY: cp COMPARISON: XY CHEST PORTABLE on DOS: 06/17/24, XY CHEST XRAY 1 VIEW on DOS: 08/16/23 XY CHEST PORTABLE on DOS: 06/17/24, XY CHEST XRAY 1 VIEW on DOS: 08/16/23 TECHNICAL DATA: 1 view of the chest was obtained. FINDINGS: Lines and tubes: There is a cardiac pacer. Cardiomediastinal silhouette: normal Pulmonary vasculature: normal Lung expansion: normal Lung airspace: normal Lung interstitium: normal Pleura: normal Pneumothorax: no Bones: Unremarkable Other: Sternotomy wires are noted. IMPRESSION: No acute intrathoracic abnormality.
[2024-09-07 16:39] LABS: Urine Bacteria FEW /hpf (None Seen); Urine Blood Negative /uL (Negative); Urine Clarity Clear (Clear); Urine Color Colorless (Yellow); Urine Protein, UAD Negative (Negative); Urine Specific Gravity 1.007 (1.001-1.035); Urine Urobilinogen Normal (Negative); Urine WBC 1 /hpf (0 - 5); Urine pH 6.5 (5.0-9.0)
--- NOTE | 2024-09-07 18:59 | ECG ---
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
[2024-09-07] MEDS: ASPirin 325 MG TAB PO ONE (20:57)
[2024-09-07] MEDS ORDERED: HYDROcodone-ACET 5/325MG TAB PO PRN (21:00)
[2024-09-07] MEDS ORDERED: DOCUSATE SOD 100 MG CAP PO PRN (21:00)
[2024-09-07] MEDS ORDERED: NITROGLYCERIN 0.4 MG SL TAB SL PRN (21:00)
--- NOTE | 2024-09-07 21:04 | DVHHP2 ---
Admitting Diagnosis: Chest pain History of Present Illness 89 yo female patient c/o chest pain. Patient sts that she had a pacemaker placed in June. She sts that she fell afterwards but did not develop pain until now. While in the emergency department the patient was evaluated by the provider, As per provider: Labs, vital signs, and imagining monitored. Patient will be admitted for further evaluation and treatment. I discussed admission with the patient/family and is in agreement to treatment plan. Allergies: Coded Allergies: Morphine (Verified Allergy, Unknown, 08/16/23) Home Meds Active Scripts Nutritional Supplements (Boost) But Pecn Liq, 1 PECN PO DAILY for 30 Days, #30 LIQ 3 Refills requesting chocolate Prov:JO ORDONEZ ROUTE CLERK 06/30/24 Magnesium Oxide (Magnesium Oxide) 400 Mg Tab, 400 MG PO DAILY for 30 Days, #30 TAB Prov:JO ORDONEZ ROUTE CLERK 06/30/24 Reported Medications Doxycycline Hyclate (Doxycycline Hyclate) 100 Mg Cap, 1 TAB PO BID for 7 Days, #14 06/20/24 Oxycodone W/ Acetaminophen (Apap/Oxycodone) 1 Tab Tab, 1 TAB PO UD for 7 Days, #30 06/20/24 Ondansetron Odt 4MG Tab (ZOFRAN PO) 4 Mg Tb, 4 MG PO UD for 15 Days, #30 ODT TAB-DISSOLVE IN MOUTH, THEN SWALLOW 06/20/24 Albuterol Sulfate (Albuterol Sulfate Hfa) 108 Mcg/Act Aer, 108 MCG IN UD for 33 Days, #6.7 06/20/24 Metoclopramide Hcl (Metoclopramide Hcl) 5 Mg Tab, 5 MG PO UD for 7 Days, #30 06/20/24 Cephalexin Monohydrate (Cephalexin) 500 Mg Cap, 1 CAP PO QID for 7 Days, #28 06/20/24 Carvedilol (Carvedilol) 3.125 Mg Tab, 1 TAB PO BID for 90 Days, #180 06/20/24 Levothyroxine Sodium (Levothyroxine Sodium) 100 Mcg Tab, 1 TAB PO DAILY for 90 Days, #90 06/20/24 Atorvastatin Calcium (Lipitor) 40 Mg Tab, 1 TAB PO DAILY for 90 Days, #90 06/20/24 Omeprazole (Omeprazole Dr) 20 Mg Cap, 1 CAP PO BID for 30 Days, #60 06/20/24 Ezetimibe (Zetia) 10 Mg Tab, 1 TAB PO DAILY for 30 Days, #30 06/20/24 Metformin Hydrochloride (Metformin Hcl) 500 Mg Tab, 1 TAB PO DAILY for 30 Days, #30 06/20/24 Current Medications Current Medications Medications (Trade) Dose Ordered Sig/Abraham Route PRN Reason Start Time Stop Time Status Last Admin Enoxaparin Sodium (Lovenox) 40 mg DAILY SC 09/08/24 10:00 09/08/24 10:32 EZETIMIBE (Zetia) 10 mg DAILY PO 09/08/24 10:00 09/08/24 10:33 Levothyroxine Sodium (Synthroid Tablet) 100 mcg DAILY@0600 PO 09/08/24 06:00 09/08/24 05:59 Metformin HCl (Glucophage) 500 mg DAILY PO 09/08/24 10:00 09/08/24 10:33 Atorvastatin Calcium (Lipitor) 40 mg DAILY PO 09/08/24 10:00 09/08/24 10:32 Magnesium Oxide (Mag-Ox Tablet) 400 mg DAILY PO 09/08/24 10:00 09/08/24 10:33 Pantoprazole Sodium (Protonix Tablet) 40 mg BID PO 09/08/24 10:00 09/08/24 21:12 Review of Systems Constitutional: denies chills, denies fever, denies malaise Eyes: denies eye pain, denies vision change ENT: denies ear pain, denies headache, denies nasal congestion, denies painful swallowing, denies voice change Cardiovascular: denies chest pain, denies edema, denies orthopnea, denies palpitations, denies paroxysmal nocturnal dyspnea Respiratory: denies cough, denies shortness of breath Gastrointestinal: denies constipation, denies diarrhea, denies nausea, denies vomiting Genitourinary: denies dysuria, denies frequent urination, denies urethral discharge Musculoskeletal: denies back pain, denies joint pain, denies muscle pain Skin: denies bruising, denies itching, denies rash Neurological: denies focal weakness, denies headache, denies sensory changes Psychiatric: denies anxiety, denies depression Endocrine: denies polydipsia, denies polyuria Hematologic/Lymphatic: denies easy bleeding, denies easy bruising, denies enlarged lymph nodes Allergic/Immunologic: denies allergy, denies hives Vital Signs Vital Signs Date Time Temp Pulse Resp B/P (MAP) Pulse Ox O2 Delivery O2 Flow Rate FiO2 09/08/24 21:14 89 97/60 09/08/24 20:00 Room Air* 0 21 09/08/24 17:00 97.8 21 96 97.8 Physical Exam General Appearance: alert, no distress HEENT: EOMI, PERRLA, normal external inspect of ears, no icterus, no nasal drainage Neck: no carotid bruit, no jugular venous distention (JVD), no lymphadenopathy Chest: normal thorax Respiratory: clear to auscultation, normal air movement Cardiovascular: regular rate and rhythm, no diastolic murmur, no jugular venous distention (JVD), no rub, no systolic murmur Abdominal: soft, no hepatomegaly, no mass, no splenomegaly, no tenderness Genitourinary: grossly normal external Musculoskeletal: no joint tenderness, no swelling Extremities: normal pulses, no calf tenderness, no clubbing, no cyanosis, no edema Skin: no bruising, no jaundice, no rash Neurological: alert, No focal deficit Results Labs Test 09/08/24 17:09 09/08/24 06:36 09/07/24 18:25 09/07/24 16:32 Range/Units POC Glucose 87 70-106 mg/dl White Blood Count 6.5 4.4-10.8 10^3/uL Red Blood Count 4.21 4.0-5.20 10^6/uL Hemoglobin 11.5 L 12.2-16.2 g/dL Hematocrit 35.3 L 36.0-46.0 % Mean Corpuscular Volume 83.7 80.0-100.0 fL Mean Corpuscular Hemoglobin 27.4 L 28.0-32.0 pg Mean Corpuscular Hemoglobin Concent 32.7 32.0-36.0 g/dL Red Cell Distribution Width 14.9 H 11.8-14.3 % Platelet Count 175 140-450 10^3/uL Mean Platelet Volume 7.1 6.9-10.8 fL Neutrophils (%) (Auto) 38.7 37.0-80.0 % Lymphocytes (%) (Auto) 45.7 10.0-50.0 % Monocytes (%) (Auto) 10.3 0.0-12.0 % Eosinophils (%) (Auto) 4.5 0.0-7.0 % Basophils (%) (Auto) 0.8 0.0-2.0 % Neutrophils # (Auto) 2.5 1.6-8.6 10 ^3/uL Lymphocytes # (Auto) 3.0 0.4-5.4 10 ^3/uL Monocytes # (Auto) 0.7 0-1.3 10 ^3/uL Eosinophils # (Auto) 0.3 0-0.8 10 ^3/uL Basophils # (Auto) 0.1 0-0.2 10 ^3/uL Nucleated Red Blood Cells 0.1 % Sodium Level 141 136-145 mmol/L Potassium Level 4.3 3.5-5.1 mmol/L Chloride Level 106 98-107 mmol/L Carbon Dioxide Level 27 20-31 mmol/L Anion Gap 8 5-15 Blood Urea Nitrogen 18 9-23 mg/dL Creatinine 1.03 H 0.550-1.02 mg/dL Glomerular Filtration Rate Calc 52 >90 mL/min BUN/Creatinine Ratio 17.5 10.0-20.0 Serum Glucose 96 74-106 mg/dL Calcium Level 10.0 8.7-10.4 mg/dL Total Bilirubin 0.4 0.2-1.0 mg/dL Aspartate Amino Transferase (AST) 13 13-40 U/L Alanine Aminotransferase (ALT) 14 7-40 U/L Alkaline Phosphatase 75 46-116 U/L Total Protein 6.3 5.7-8.2 g/dL Albumin 4.0 3.2-4.8 g/dL Troponin I High Sensitivity 21 </=34 ng/L Urine Color Colorless Yellow Urine Clarity Clear Clear Urine pH 6.5 5.0-9.0 Urine Specific [place] 1.007 1.001-1.035 Urine Protein Negative Negative Urine Ketones Negative Negative Urine Blood Negative Negative /uL Urine Nitrite Negative Negative Urine Bilirubin Negative Negative Urine Urobilinogen Normal Negative mg/dL Urine Leukocyte Esterase Negative Negative /uL Urine RBC <1 0 - 4 /hpf Urine WBC 1 0 - 5 /hpf Urine Squamous Epithelial Cells Few <5 /hpf Urine Bacteria Few H None Seen /hpf Urine Glucose Normal Normal mg/dL Plan 1. Chest pain Monitor EKG, cardiology consult 2. HLD Monitor, restart home meds, DVT prophylaxis 3. Hypothyroid Monitor, restart home meds 4. S/p pacemaker placement Monitor, plan pacemaker interrogation 5. DM II & hyperglycemia Monitor, insulin ss, PPI Plan discussed with: Patient, Other JO ORDONEZ NP Sep 07, 2024 21:04
[2024-09-07] MEDS ORDERED: DEXTROSE (50%) 50ML SYRG IV PRN (21:15)
[2024-09-07] MEDS: ACCU-CHEK COMFORT CURVE STRIP VI SCH (22:00)
[2024-09-07] MEDS: InsuLIN REG 1unit/0.01ml Soln (100units/ml) SC SCH (22:00)
[2024-09-08] VITALS (10 sets, daily range): BP systolic 94–127; BP diastolic 43–78; PULSE 60–78; RESP 16–25; TEMP 97.5–98.6; O2SAT 94–98
[2024-09-08] MEDS: CARVEDILOL 3.125 MG TAB PO SCH (00:54)
[2024-09-08] MEDS: LEVOTHYROXINE SODIUM 100 MCG TAB PO SCH (05:59)
--- NOTE | 2024-09-08 06:38 | ECG ---
[facility] Test Date: 2024-09-07 Test Time: 15:22:40 Pat Name: LISA MACK Department: ER Room: [facility] Gender: F Hollock Maker: KENNETH : 1935 Requested By: LILIAN VALDEZ Order Number: [id number] Reading MD: Mak Fuller Measurements Intervals [place] Rate: 73 P: 17 [place]: 167 QRS: -75 QRSD: 123 T: 102 QT: 429 QTc: 473 Interpretive Statements Sinus rhythm Probable left atrial enlargement Right bundle branch block LVH with IVCD and secondary repol abnrm Baseline wander in lead(s) V6 Electronically Signed On 09-08-2024 12:05:05 PST by Mak Fuller Please click the below link to view image of tracing.
[2024-09-08 07:17] LABS: Basophils # (auto) 0.1 10 ^3/uL (0-0.2); Basophils % (auto) 0.8 % (0.0-2.0); Eosinophils # (auto) 0.3 10 ^3/uL (0-0.8); Eosinophils % (auto) 4.5 % (0.0-7.0); Hematocrit 35.3 % (36.0-46.0); Hemoglobin 11.5 g/dL (12.2-16.2); Lymphocytes % (auto) 45.7 % (10.0-50.0); Mean Corpuscular Hemoglobin 27.4 pg (28.0-32.0); Mean Corpuscular Hgb Conc. 32.7 g/dL (32.0-36.0); Mean Corpuscular Volume 83.7 fL (80.0-100.0); Monocytes # (auto) 0.7 10 ^3/uL (0-1.3); Monocytes % (auto) 10.3 % (0.0-12.0); Neutrophils # (auto) 2.5 10 ^3/uL (1.6-8.6); Neutrophils % (auto) 38.7 % (37.0-80.0); Nucleated Red Blood Cells % 0.1 %; Platelet Count (auto) 175 10^3/uL (140-450); Red Blood Cells 4.21 10^6/uL (4.0-5.20); Red Cell Distribution Width 14.9 % (11.8-14.3); White Blood Cell 6.5 10^3/uL (4.4-10.8)
[2024-09-08 07:55] LABS: Alanine Aminotransferase 14 U/L (7-40); Alkaline Phosphatase 75 U/L (46-116); Anion Gap 8 (5-15); BUN/Creatinine Ratio 17.5 (10.0-20.0); Blood Urea Nitrogen 18 mg/dL (9-23); Carbon Dioxide 27 mmol/L (20-31); Chloride 106 mmol/L (98-107); Glucose 96 mg/dL (74-106); Potassium 4.3 mmol/L (3.5-5.1); Sodium 141 mmol/L (136-145)
[2024-09-08 07:56] LABS: Aspartate Aminotransferase 13 U/L (13-40); Bilirubin, Total 0.4 mg/dL (0.2-1.0); Total Protein 6.3 g/dL (5.7-8.2)
--- NOTE | 2024-09-08 09:40 | DVHPN2 ---
Progress Note - Dictate Date Seen: Sep 08, 2024 Medical Necessity Reason Pt with a Central, PICC or Fol: No vital signs Vital Sign Date Time Temp Pulse Resp B/P (MAP) Pulse Ox O2 Delivery O2 Flow Rate FiO2 09/08/24 05:58 68 18 Room Air* 0 21 09/08/24 05:58 98.6 107/78 (88) 98 98.6 medications Current Medications Medications Dose Ordered Sig/Abraham Route Start Time Stop Time Status Last Admin Dose Admin Acetaminophen/ Hydrocodone Bitart 1 tab Q4HP PRN PO 09/07/24 21:00 Ondansetron HCl 4 mg Q4HP PRN IV 09/07/24 21:00 Docusate Sodium 100 mg BIDPRN PRN PO 09/07/24 21:00 Enoxaparin Sodium 40 mg DAILY SC 09/08/24 10:00 Acetaminophen 650 mg Q6HP PRN PO 09/07/24 21:00 Nitroglycerin 0.4 mg Q5MINP PRN SL 09/07/24 21:00 Carvedilol 3.125 mg BID PO 09/07/24 22:00 09/08/24 00:54 3.125 MG EZETIMIBE 10 mg DAILY PO 09/08/24 10:00 Levothyroxine Sodium 100 mcg DAILY@0600 PO 09/08/24 06:00 09/08/24 05:59 100 MCG Metformin HCl 500 mg DAILY PO 09/08/24 10:00 Atorvastatin Calcium 40 mg DAILY PO 09/08/24 10:00 Magnesium Oxide 400 mg DAILY PO 09/08/24 10:00 Pantoprazole Sodium 40 mg BID PO 09/08/24 10:00 Diagnostic Test (Pha) 1 strip ACHS 09/07/24 22:00 09/08/24 06:36 1 STRIP Insulin Human Regular ACHS SC 09/07/24 22:00 Dextrose 50 ml UD PRN IV 09/07/24 21:15 objective General Appearance: alert, no distress HEENT: EOMI, PERRLA, normal external inspect of ears, no icterus, no nasal drainage Neck: no carotid bruit, no jugular venous distention (JVD), no lymphadenopathy Chest: normal thorax Respiratory: clear to auscultation, normal air movement Cardiovascular: regular rate and rhythm, no diastolic murmur, no jugular venous distention (JVD), no rub, no systolic murmur Abdominal: soft, no hepatomegaly, no mass, no splenomegaly, no tenderness Genitourinary: grossly normal external Musculoskeletal: no joint tenderness, no swelling Extremities: normal pulses, no calf tenderness, no clubbing, no cyanosis, no edema Skin: no bruising, no jaundice, no rash Neurological: alert, No focal deficit laboratory and microbiology Laboratory Tests 09/08/24 06:36 Test 09/08/24 06:36 Range/Units Serum Glucose 96 74-106 mg/dL Problem List 1. Chest pain Monitor EKG, cardiology consult 2. HLD Monitor, restart home meds, DVT prophylaxis 3. Hypothyroid Monitor, restart home meds 4. S/p pacemaker placement Monitor, plan pacemaker interrogation 5. DM II & hyperglycemia Monitor, insulin ss, PPI Assessment/Plan Subjective Patient is awake and alert Objective Patient was reportedly admitted for chest pain however upon further questioning patient states she actually had complaints of bilateral hand cramping. Patient states she has a history of carpal tunnel and that her hand started to cramp so bad that her chest started to hurt. Now patient states she has right lower abdominal pain and is requesting an abdominal x-ray. Patient has a history of pacemaker placement June of this year. Patient has seen cardiology and has had her pacemaker interrogated in the past. Troponin has been negative. Plan Continue current treatment. Request for [facility] pacemaker interrogation. Cardiology recommendations appreciated. Possible plan for discharge in a.m. Plan discussed with: Patient, Other JO ORDONEZ NP Sep 08, 2024 09:40
[2024-09-08] MEDS: ENOXAPARIN SOD 40 MG/0.4 ML SYRINGE SC SCH (10:32)
[2024-09-08] MEDS: ATORVASTATIN 20 MG TAB PO SCH (10:32)
[2024-09-08] MEDS: PANTOPRAZOLE 40 MG TAB PO SCH (10:32)
[2024-09-08] MEDS: EZETIMIBE 10 MG TAB PO SCH (10:33)
[2024-09-08] MEDS: metFORMIN HYDROCHLORIDE 500 MG TAB PO SCH (10:33)
[2024-09-08] MEDS: MAGNESIUM OXIDE 400 MG TAB PO SCH (10:33)
--- NOTE | 2024-09-08 10:38 | DVHINCON2 ---
Date of service: Sep 08, 2024 Referring Physician Jo Ordonez NP Reason for Consultation Chest pain and SOB History of Present Illness Juliann Bailon is an 89 y/o Female patient of Dr Joseph Marie with h/o SSS, hypertension, hyperlipidemia, DM2, TIA, CAD with CABG, PM in situ, hypothyroid ism and UTIs presented to the hospital with complaints of severe pain, numbness and cold feeling in her hands. Pt states she got up in the morning on 09/06/24 with the house feeling cold. She states after walking into the kitchen her hands felt frozen and numb and began to have severe pain resulting in limited mobility. Patient states this upset her very much and she began to have SOB with some associated chest pressure so she called her daughter to call EMS. On my initial assessment of the patient, she is still very concerned about the pain in her hands. She states this is not new and worsens with cold weather. She has been referred to rheumatology as outpatient but has not yet seen them per her report. She denies any further CP or SOB. Denies palpitations, lightheadeness, dizziness, or syncope. The initial ED HPI states patient has a pacemaker and a fall, however this occur red back in June of this year. PM was placed 06/15/24 and patient fell about a week later but came to the hospital at that time with full evaluation and PM interrogation showing normal function. This is not a concern for this admission. k 4.1 - 4.3 Creat 0.95 - 1.03 WBC 7.5 - 6.5 Hgb 11.7 - 11.5 ast 14 alt 75 HS troponin CXR - no acute cardiopulmonary abnormalities EKG - normal sinus rhythm with RBBB at 71 bpm Allergies: Coded Allergies: Morphine (Verified Allergy, Unknown, 08/16/23) Home Meds Active Scripts Nutritional Supplements (Boost) But Pecn Liq, 1 PECN PO DAILY for 30 Days, #30 LIQ 3 Refills requesting chocolate Prov:JO ORDONEZ NP 06/30/24 Magnesium Oxide (Magnesium Oxide) 400 Mg Tab, 400 MG PO DAILY for 30 Days, #30 TAB Prov:JO ORDONEZ NP 06/30/24 Reported Medications Doxycycline Hyclate (Doxycycline Hyclate) 100 Mg Cap, 1 TAB PO BID for 7 Days, #14 06/20/24 Oxycodone W/ Acetaminophen (Apap/Oxycodone) 1 Tab Tab, 1 TAB PO UD for 7 Days, #30 06/20/24 Ondansetron Odt 4MG Tab (ZOFRAN PO) 4 Mg Tb, 4 MG PO UD for 15 Days, #30 ODT TAB-DISSOLVE IN MOUTH, THEN SWALLOW 06/20/24 Albuterol Sulfate (Albuterol Sulfate Hfa) 108 Mcg/Act Aer, 108 MCG IN UD for 33 Days, #6.7 06/20/24 Metoclopramide Hcl (Metoclopramide Hcl) 5 Mg Tab, 5 MG PO UD for 7 Days, #30 06/20/24 Cephalexin Monohydrate (Cephalexin) 500 Mg Cap, 1 CAP PO QID for 7 Days, #28 06/20/24 Carvedilol (Carvedilol) 3.125 Mg Tab, 1 TAB PO BID for 90 Days, #180 06/20/24 Levothyroxine Sodium (Levothyroxine Sodium) 100 Mcg Tab, 1 TAB PO DAILY for 90 Days, #90 06/20/24 Atorvastatin Calcium (Lipitor) 40 Mg Tab, 1 TAB PO DAILY for 90 Days, #90 06/20/24 Omeprazole (Omeprazole Dr) 20 Mg Cap, 1 CAP PO BID for 30 Days, #60 06/20/24 Ezetimibe (Zetia) 10 Mg Tab, 1 TAB PO DAILY for 30 Days, #30 06/20/24 Metformin Hydrochloride (Metformin Hcl) 500 Mg Tab, 1 TAB PO DAILY for 30 Days, #30 06/20/24 Current Medications Current Medications Medications (Trade) Dose Ordered Sig/Abraham Route PRN Reason Start Time Stop Time Status Last Admin Acetaminophen/ Hydrocodone Bitart ([place] 5/325MG Tab) 1 tab Q4HP PRN PO MODERATE PAIN (4-6 PAIN SCALE) 09/07/24 21:00 Ondansetron HCl (Zofran) 4 mg Q4HP PRN IV NAUSEA / VOMITING 09/07/24 21:00 Docusate Sodium (Colace Capsule) 100 mg BIDPRN PRN PO FOR CONSTIPATION 09/07/24 21:00 Enoxaparin Sodium (Lovenox) 40 mg DAILY SC 09/08/24 10:00 09/08/24 10:32 Acetaminophen (Tylenol Tablet) 650 mg Q6HP PRN PO PAIN SCALE 1-3 OR TEMP>100.4 09/07/24 21:00 Nitroglycerin (Ntrostat Sublingual) 0.4 mg Q5MINP PRN SL FOR CHEST PAIN 09/07/24 21:00 Carvedilol (Coreg Tablet) 3.125 mg BID PO 09/07/24 22:00 09/08/24 00:54 EZETIMIBE (Zetia) 10 mg DAILY PO 09/08/24 10:00 09/08/24 10:33 Levothyroxine Sodium (Synthroid Tablet) 100 mcg DAILY@0600 PO 09/08/24 06:00 09/08/24 05:59 Metformin HCl (Glucophage) 500 mg DAILY PO 09/08/24 10:00 09/08/24 10:33 Atorvastatin Calcium (Lipitor) 40 mg DAILY PO 09/08/24 10:00 09/08/24 10:32 Magnesium Oxide (Mag-Ox Tablet) 400 mg DAILY PO 09/08/24 10:00 09/08/24 10:33 Pantoprazole Sodium (Protonix Tablet) 40 mg BID PO 09/08/24 10:00 09/08/24 10:32 Diagnostic Test (Pha) (Accu-Chek Comfort Curve T) 1 strip ACHS 09/07/24 22:00 09/08/24 06:36 Insulin Human Regular (InsuLIN R) ACHS SC 09/07/24 22:00 Dextrose 50 ml UD PRN IV Blood Sugar LESS THAN 60 09/07/24 21:15 Review of Systems no chest pain, palpitations, dizziness, lightheadedness, syncope, SOB, chills/fever. Pain to chest/left arm exacerbated by movement s/p fall. No fatigue or weakness. Vital Signs Vital Signs Date Time Temp Pulse Resp B/P (MAP) Pulse Ox O2 Delivery O2 Flow Rate FiO2 09/08/24 10:00 67 117/52 09/08/24 09:00 97.5 18 95 97.5 09/08/24 05:58 Room Air* 0 21 Labs/Diagnostic Data Labs Test 09/08/24 06:36 09/08/24 06:09 09/07/24 18:25 09/07/24 16:32 Range/Units White Blood Count 6.5 4.4-10.8 10^3/uL Red Blood Count 4.21 4.0-5.20 10^6/uL Hemoglobin 11.5 L 12.2-16.2 g/dL Hematocrit 35.3 L 36.0-46.0 % Mean Corpuscular Volume 83.7 80.0-100.0 fL Mean Corpuscular Hemoglobin 27.4 L 28.0-32.0 pg Mean Corpuscular Hemoglobin Concent 32.7 32.0-36.0 g/dL Red Cell Distribution Width 14.9 H 11.8-14.3 % Platelet Count 175 140-450 10^3/uL Mean Platelet Volume 7.1 6.9-10.8 fL Neutrophils (%) (Auto) 38.7 37.0-80.0 % Lymphocytes (%) (Auto) 45.7 10.0-50.0 % Monocytes (%) (Auto) 10.3 0.0-12.0 % Eosinophils (%) (Auto) 4.5 0.0-7.0 % Basophils (%) (Auto) 0.8 0.0-2.0 % Neutrophils # (Auto) 2.5 1.6-8.6 10 ^3/uL Lymphocytes # (Auto) 3.0 0.4-5.4 10 ^3/uL Monocytes # (Auto) 0.7 0-1.3 10 ^3/uL Eosinophils # (Auto) 0.3 0-0.8 10 ^3/uL Basophils # (Auto) 0.1 0-0.2 10 ^3/uL Nucleated Red Blood Cells 0.1 % Sodium Level 141 136-145 mmol/L Potassium Level 4.3 3.5-5.1 mmol/L Chloride Level 106 98-107 mmol/L Carbon Dioxide Level 27 20-31 mmol/L Anion Gap 8 5-15 Blood Urea Nitrogen 18 9-23 mg/dL Creatinine 1.03 H 0.550-1.02 mg/dL Glomerular Filtration Rate Calc 52 >90 mL/min BUN/Creatinine Ratio 17.5 10.0-20.0 Serum Glucose 96 74-106 mg/dL Calcium Level 10.0 8.7-10.4 mg/dL Total Bilirubin 0.4 0.2-1.0 mg/dL Aspartate Amino Transferase (AST) 13 13-40 U/L Alanine Aminotransferase (ALT) 14 7-40 U/L Alkaline Phosphatase 75 46-116 U/L Total Protein 6.3 5.7-8.2 g/dL Albumin 4.0 3.2-4.8 g/dL POC Glucose 84 70-106 mg/dl Troponin I High Sensitivity 21 </=34 ng/L Urine Color Colorless Yellow Urine Clarity Clear Clear Urine pH 6.5 5.0-9.0 Urine Specific [place] 1.007 1.001-1.035 Urine Protein Negative Negative Urine Ketones Negative Negative Urine Blood Negative Negative /uL Urine Nitrite Negative Negative Urine Bilirubin Negative Negative Urine Urobilinogen Normal Negative mg/dL Urine Leukocyte Esterase Negative Negative /uL Urine RBC <1 0 - 4 /hpf Urine WBC 1 0 - 5 /hpf Urine Squamous Epithelial Cells Few <5 /hpf Urine Bacteria Few H None Seen /hpf Urine Glucose Normal Normal mg/dL Plan/Recommendation 89 y/o Female patient of Dr Joseph Marie with h/o SSS, hypertension, hyperlipidemia, DM2, TIA, CAD with CABG, PM in situ, hypothyroidism and UTIs presented to the hospital with complaints of severe pain, numbness and cold feeling in her hands. Pt states she got up in the morning on 09/06/24 with the house feeling cold. She states after walking into the kitchen her hands felt frozen and numb and began to have severe pain resulting in limited mobility. Patient states this upset her very much and she began to have SOB with some associated chest pressure so she called her daughter to call EMS. On my initial assessment of the patient, she is still very concerned about the pain in her hands. She states this is not new and worsens with cold weather. She has been referred to rheumatology as outpatient but has not yet seen them per her report. She denies any further CP or SOB. Denies palpitations, lightheadeness, dizziness, or syncope. The initial ED HPI states patient has a pacemaker and a fall, however this occurred back in June of this year. PM was placed 06/15/24 and patient fell about a week later but came to the hospital at that time with full evaluation and PM interrogation showing normal function. This is not a concern for this admission. k 4.1 - 4.3 Creat 0.95 - 1.03 WBC 7.5 - 6.5 Hgb 11.7 - 11.5 ast 14 alt 75 HS troponin CXR - no acute cardiopulmonary abnormalities EKG - normal sinus rhythm with RBBB at 71 bpm ECHO 06/18/24 Technically limited study secondary to poor acoustic windows. Left ventricle was normal-sized with normal systolic function. Concentric left ventricular hypertrophy was seen. LVEF was 65-70%. Right ventricle was normal-sized with normal systolic function. Left atrium was dilated. Right atrium was mildly dilated. Aortic valve was not well visualized. Can not rule out previously placed tissue prosthetic valve. There was no aortic insufficiency. Aortic sclerosis with no stenosis can not be ruled out. Mitral valve: Mitral valve was not well visualized. Mitral valvular calcification versus old mitral valve replacement is seen. There was no mitral regurgitation. Moderate mitral stenosis is observed. There was moderate tricuspid regurgitation. Pulmonary valve was not well visualized. Right ventricular systolic pressure was assessed around 45 mm Hg. There was no pericardial effusion. Physical exam: General: No acute distress. Awake and conversant. Neck: Neck is supple. No masses or thyromegaly, no JVD, No carotid bruit. Respiratory: Respirations are non-labored. Lungs are clear to auscultation. Skin: Warm. CV: RRR, Normal heart sounds, no murmurs. No lower extremity edema. PM to left chest. Neuro: AAo x 4 89 y/o Female patient of Dr Joseph Marie with h/o Afib, hypertension, hyperlipidemia, DM2, TIA, CAD with CABG, PM in situ, hypothyroidism and UTIs pre sented to the hospital with complaints of severe pain, numbness and cold feeling in her hands. Assessments: Chest pressure SOB PM in situ Bilateral hand pain Bilateral paresthesias of the hands hypertension hyperlipidemia DM2 Anxiety CAD with h/o CABG Cardiac recommendations: PM interrogation requested Patient's chest pain and SOB appears secondary to patient becoming upset and anxious over the patient in her hands. Perhaps anxiety or panic attack should be considered in light of negative troponin levels. NO need for ischemic workup at this time. asa 81mg daily atorvastatin 40mg daily zetia 10mg daily synthroid 100mcg daily coreg 3.125mg BID Mgt in telemetry Cardiac monitoring Ongoing rate and rhythm surveillance Hemodynamic monitoring. Avoid hypertension and hypotension. Monitor and maintain electrolytes and renal function. Supplement as needed to maintain K > 4.0 and Mg > 2.0. Monitor Hgb and transfuse if Hgb < 7.0. Lifestyle and risk modification counseling All available labs, EKGs, and images were personally reviewed Patient's status, findings, and plan of care was discussed and reviewed with supervising physician Dr. Marie, who is in agreement with current plan of care. Plan of care discussed with and agreed upon by the patient/Primary RN. Prognosis: Guarded Thank you for allowing me to participate in the care of this patient. Further recommendations will depend on clinical progression, hospitalist, and other consultants. Will continue to follow with Primary. If you have any questions, please do not hesitate to contact me. A total of 75 minutes was spent reviewing the patient record, examining the patient, making a diagnostic and therapeutic plan, discussing this plan with medical personnel, following up on diagnostic studies and following the patient for clinical stability including any and all procedures. At least 50% of this time was spent in direct, [id number] contact. Plan discussed with: Patient, Other (RN) Provider Statement: I have reviewed the case with my supervising physician. We have agreed with the plan of care. GWENDOLYN [facility] Sep 08, 2024 10:38
--- NOTE | 2024-09-08 11:48 | DVH ---
Date: 09/08/2024 10:10 AM Examination: XY ABDOMEN 2 VIEW History: rlq pain Comparison: None TECHNIQUE: Frontal views of the abdomen was obtained. FINDINGS: Bowel gas pattern is unremarkable. Large stool burden. The upper abdomen and lower thorax or collimated from field of view. No acute osseous abnormality identified. IMPRESSION: Nonobstructive bowel gas pattern. Large stool burden.
[2024-09-09] VITALS (9 sets, daily range): BP systolic 100–137; BP diastolic 40–78; PULSE 64–82; RESP 16–20; TEMP 97.5–98.6; O2SAT 93–98
[2024-09-09] MEDS: ACETAMINOPHEN 325 MG TAB PO PRN (11:02)
--- NOTE | 2024-09-09 14:30 | DVH ---
Exam: CT CT AB PEL WO CON-NO ORAL OR IV History: abdominal pain Comparison Study: CT CHST AB PEL WO CON-NO IV/ORAL on DOS: 06/18/24 Technique: Multidetector spiral CT of the abdomen and pelvis was performed from lung bases to pubic symphysis. Imaging was performed without IV contrast. Axial, coronal and sagittal multiplanar reform ats were obtained from the axial data set by the technologist. Radiation dose : Abdomen/Pelvis: CTDIvol 16 mGy, DLP 707.43 mGy*cm. Findings: Evaluation of solid organs is limited due to lack of intravenous contrast use. Lung Bases: No acute or significant lung base finding. Normal heart size. No pleural or pericardial effusion. Liver: The liver is normal in size. No focal lesions. Gallbladder and biliary Tree: Gallbladder is surgically absent. Spleen: Unremarkable Pancreas: The pancreas is grossly normal in appearance. Adrenal Glands: Unremarkable Kidneys: Kidneys are grossly normal without calculi or hydronephrosis. Bladder: Grossly unremarkable for degree of distention. Bowel: The stomach is grossly normal in appearance. Small bowel and colon are normal in caliber and d istribution. Normal appendix is visualized in the right lower quadrant without findings of appendici tis. Sigmoid diverticulosis. Ascites: Absent Lymphadenopathy: No mesenteric, retroperitoneal or periportal lymphadenopathy. Abdominal wall and Mesentery: Small fat containing periumbilical hernia. Small fat containing left in guinal hernia. Subcutaneous emphysema in the anterior abdominal wall. Vasculature: The visualized abdominal aorta is normal in size and caliber. There is extensive athero sclerotic calcification of the aorta and its branches. Evaluation of abdominal and pelvic vessels is limited due to lack of intravenous contrast. Pelvic Organs: Unremarkable Musculoskeletal: No aggressive focal bony lesions, acute fractures or dislocation. IMPRESSION: 1. No acute abdominal or pelvic findings. Diverticulosis. Small fat containing periumbilical hernia. Small fat containing left inguinal hernia. Radiation optimization: All CT scans at this facility use at least one of these dose optimization donavan hniques: Automated exposure control mA and/or kV adjustment per patient size (includes targeted exams where dose is matched to clinical indication) or iterative reconstruction. HS:Y
[2024-09-09] MEDS: LACTULOSE 20Gm/30ML SOLN PO SCH (18:00)
--- NOTE | 2024-09-09 18:52 | DVHPN2 ---
Progress Note - Dictate Date Seen: Sep 09, 2024 Medical Necessity Reason Pt with a Central, PICC or Fol: No vital signs Vital Sign Date Time Temp Pulse Resp B/P (MAP) Pulse Ox O2 Delivery O2 Flow Rate FiO2 09/09/24 17:00 97.7 73 19 109/40 (63) 96 97.7 09/09/24 08:00 Room Air* 0 21 Total Intake and Output 09/08/24 09/08/24 09/09/24 15:00 23:00 07:00 Intake Total 476 ml 716 ml Output Total 150 ml Balance 476 ml 716 ml -150 ml medications Current Medications Medications Dose Ordered Sig/Abraham Route Start Time Stop Time Status Last Admin Dose Admin Acetaminophen/ Hydrocodone Bitart 1 tab Q4HP PRN PO 09/07/24 21:00 Ondansetron HCl 4 mg Q4HP PRN IV 09/07/24 21:00 Docusate Sodium 100 mg BIDPRN PRN PO 09/07/24 21:00 Enoxaparin Sodium 40 mg DAILY SC 09/08/24 10:00 09/09/24 10:47 40 MG Acetaminophen 650 mg Q6HP PRN PO 09/07/24 21:00 09/09/24 11:02 650 MG Nitroglycerin 0.4 mg Q5MINP PRN SL 09/07/24 21:00 Carvedilol 3.125 mg BID PO 09/07/24 22:00 09/09/24 10:47 3.125 MG EZETIMIBE 10 mg DAILY PO 09/08/24 10:00 09/09/24 10:47 10 MG Levothyroxine Sodium 100 mcg DAILY@0600 PO 09/08/24 06:00 09/09/24 06:00 100 MCG Metformin HCl 500 mg DAILY PO 09/08/24 10:00 09/09/24 10:45 500 MG Atorvastatin Calcium 40 mg DAILY PO 09/08/24 10:00 09/09/24 10:45 40 MG Magnesium Oxide 400 mg DAILY PO 09/08/24 10:00 09/09/24 10:47 400 MG Pantoprazole Sodium 40 mg BID PO 09/08/24 10:00 09/09/24 10:46 40 MG Diagnostic Test (Pha) 1 strip ACHS 09/07/24 22:00 09/09/24 10:47 1 STRIP Insulin Human Regular ACHS SC 09/07/24 22:00 09/09/24 11:10 2 UNITS Dextrose 50 ml UD PRN IV 09/07/24 21:15 Lactulose 30 ml Q6HR PO 09/09/24 18:00 laboratory and microbiology Laboratory Tests 09/08/24 06:36 Test 09/08/24 06:36 Range/Units Serum Glucose 96 74-106 mg/dL Assessment/Plan 89 y/o Female patient of Dr Joseph Marie with h/o SSS, hypertension, hyperlipidemia, DM2, TIA, CAD with CABG, PM in situ, hypothyroidism and UTIs presented to the hospital with complaints of severe pain, numbness and cold feeling in her hands. Pt states she got up in the morning on 09/06/24 with the house feeling cold. She states after walking into the kitchen her hands felt frozen and numb and began to have severe pain resulting in limited mobility. Patient states this upset her very much and she began to have SOB with some associated chest pressure so she called her daughter to call EMS. On my initial assessment of the patient, she is still very concerned about the pain in her hands. She states this is not new and worsens with cold weather. She has been referred to rheumatology as outpatient but has not yet seen them per her report. She denies any further CP or SOB. Denies palpitations, lightheadeness, dizziness, or syncope. The initial ED HPI states patient has a pacemaker and a fall, however this occurred back in June of this year. PM was placed 06/15/24 and patient fell about a week later but came to the hospital at that time with full evaluation and PM interrogation showing normal function. This is not a concern for this admission. HS troponin CXR - no acute cardiopulmonary abnormalities EKG - normal sinus rhythm with RBBB at 71 bpm ECHO 06/18/24 Technically limited study secondary to poor acoustic windows. Left ventricle was normal-sized with normal systolic function. Concentric left ventricular hypertrophy was seen. LVEF was 65-70%. Right ventricle was normal-sized with normal systolic function. Left atrium was dilated. Right atrium was mildly dilated. Aortic valve was not well visualized. Can not rule out previously placed tissue prosthetic valve. There was no aortic insufficiency. Aortic sclerosis with no stenosis can not be ruled out. Mitral valve: Mitral valve was not well visualized. Mitral valvular calcification versus old mitral valve replacement is seen. There was no mitral regurgitation. Moderate mitral stenosis is observed. There was moderate tricuspid regurgitation. Pulmonary valve was not well visualized. Right ventricular systolic pressure was assessed around 45 mm Hg. There was no pericardial effusion. Physical exam: General: No acute distress. Awake and conversant. Neck: Neck is supple. No masses or thyromegaly, no JVD, No carotid bruit. Respiratory: Respirations are non-labored. Lungs are clear to auscultation. Skin: Warm. CV: RRR, Normal heart sounds, no murmurs. No lower extremity edema. PM to left chest. Neuro: AAo x 4 89 y/o Female patient of Dr Joseph Marie with h/o Afib, hypertension, hyperlipidemia, DM2, TIA, CAD with CABG, PM in situ, hypothyroidism and UTIs presented to the hospital with complaints of severe pain, numbness and cold feeling in her hands. Assessments: Chest pressure SOB PM in situ Bilateral hand pain Bilateral paresthesias of the hands hypertension hyperlipidemia DM2 Anxiety CAD with h/o CABG Cardiac recommendations: PM ([place]) interrogation requested Patient's chest pain and SOB appears secondary to patient becoming upset and anxious over the patient in her hands. Perhaps anxiety or panic attack should be considered in light of negative troponin levels. No need for ischemic workup at this time. asa 81mg daily atorvastatin 40mg daily zetia 10mg daily synthroid 100mcg daily coreg 3.125mg BID Mgt in telemetry Cardiac monitoring Ongoing rate and rhythm surveillance Hemodynamic monitoring. Avoid hypertension and hypotension. Monitor and maintain electrolytes and renal function. Supplement as needed to maintain K > 4.0 and Mg > 2.0. Monitor Hgb and transfuse if Hgb < 7.0. Lifestyle and risk modification counseling All available labs, EKGs, and images were personally reviewed Plan of care discussed with and agreed upon by the patient/Primary RN. Prognosis: Guarded Thank you for allowing me to participate in the care of this patient. Further recommendations will depend on clinical progression, hospitalist, and other consultants. Will continue to follow with Primary. If you have any questions, please do not hesitate to contact me. A total of 55 minutes was spent reviewing the patient record, examining the patient, making a diagnostic and therapeutic plan, discussing this plan with medical personnel, following up on diagnostic studies and following the patient for clinical stability including any and all procedures. At least 50% of this time was spent in direct, [id number] contact. Plan discussed with: Patient, Other (nurse) LISA OSPINA MD Sep 09, 2024 18:52
--- NOTE | 2024-09-09 21:22 | DVHPN2 ---
Progress Note Date Seen: Sep 09, 2024 Medical Necessity Reason Pt with a Central, PICC or Fol: No Subjective Review of Systems: CVS:Normal, RESPIRATORY:Normal, GI:Normal, :Normal Objective vital signs Vital Sign Date Time Temp Pulse Resp B/P (MAP) Pulse Ox O2 Delivery O2 Flow Rate FiO2 09/09/24 17:00 97.7 73 19 109/40 (63) 96 97.7 09/09/24 08:00 Room Air* 0 21 Total Intake and Output 09/08/24 09/08/24 09/09/24 15:00 23:00 07:00 Intake Total 476 ml 716 ml Output Total 150 ml Balance 476 ml 716 ml -150 ml medications Current Medications Medications Dose Ordered Sig/Abraham Route Start Time Stop Time Status Last Admin Dose Admin Acetaminophen/ Hydrocodone Bitart 1 tab Q4HP PRN PO 09/07/24 21:00 Ondansetron HCl 4 mg Q4HP PRN IV 09/07/24 21:00 Docusate Sodium 100 mg BIDPRN PRN PO 09/07/24 21:00 Enoxaparin Sodium 40 mg DAILY SC 09/08/24 10:00 09/09/24 10:47 40 MG Acetaminophen 650 mg Q6HP PRN PO 09/07/24 21:00 09/09/24 11:02 650 MG Nitroglycerin 0.4 mg Q5MINP PRN SL 09/07/24 21:00 Carvedilol 3.125 mg BID PO 09/07/24 22:00 09/09/24 10:47 3.125 MG EZETIMIBE 10 mg DAILY PO 09/08/24 10:00 09/09/24 10:47 10 MG Levothyroxine Sodium 100 mcg DAILY@0600 PO 09/08/24 06:00 09/09/24 06:00 100 MCG Metformin HCl 500 mg DAILY PO 09/08/24 10:00 09/09/24 10:45 500 MG Atorvastatin Calcium 40 mg DAILY PO 09/08/24 10:00 09/09/24 10:45 40 MG Magnesium Oxide 400 mg DAILY PO 09/08/24 10:00 09/09/24 10:47 400 MG Pantoprazole Sodium 40 mg BID PO 09/08/24 10:00 09/09/24 10:46 40 MG Diagnostic Test (Pha) 1 strip ACHS 09/07/24 22:00 09/09/24 17:00 1 STRIP Insulin Human Regular ACHS SC 09/07/24 22:00 09/09/24 11:10 2 UNITS Dextrose 50 ml UD PRN IV 09/07/24 21:15 Lactulose 30 ml Q6HR PO 09/09/24 18:00 Examination: GENERAL:Normal, LUNGS:Normal, CVS:Normal, ABDOMEN:Normal, SKIN:Normal, NEURO:Normal laboratory and microbiology Laboratory Tests 09/08/24 06:36 Test 09/08/24 06:36 Range/Units Serum Glucose 96 74-106 mg/dL Problem List/Assessment/Plan Problem List/Assessment/Plan 1. Chest pain Monitor EKG, cardiology consult 2. HLD Monitor, restart home meds, DVT prophylaxis 3. Hypothyroid Monitor, restart home meds 4. S/p pacemaker placement Monitor, plan pacemaker interrogation 5. DM II & hyperglycemia Monitor, insulin ss, PPI Assessment/Plan Subjective Patient is awake and alert Objective Patient was reportedly admitted for chest pain however upon further questioning patient states she actually had complaints of bilateral hand cramping. Patient states she has a history of carpal tunnel and that her hand started to cramp so bad that her chest started to hurt. Pt is reporting patient is reporting right lower quadrant pain and KUB showing constipation, however patient is having multiple bowel movements. CT abdomen was obtain and did not show any acute findings. Patient has a history of pacemaker placement June of this year. Patient has seen cardiology and has had her pacemaker interrogated in the past. Troponin has been negative. ACS was ruled out likely chest pain was from anxiety. Plan Continue current treatment. Request for [facility] pacemaker interrogation. Cardiology recommendations appreciated. Possible plan for discharge in a.m. Plan discussed with: Patient My Orders My Orders Orders - FAISAL HEMPHLIL Procedure Category Date Status Time Lactulose Oral PHA 09/09/24 In Process 18:00 Ct Ab Pel Wo Con-No CT 09/09/24 Resulted Oral Or Iv 13:45 Date of Service: Sep 09, 2024 Billing Provider: EDINSON BAZAN MD Common Visit Codes: [id number] INP/OBS CARE (MOD) FAISAL HEMPHILL Sep 09, 2024 21:22
[2024-09-10 05:00] VITALS: BP 100/46; PULSE 65; RESP 16; TEMP 97.8; O2SAT 97
[2024-09-10 08:00] VITALS: PULSE 70; PULSE 74; RESP 18; O2SAT 95
[2024-09-10 08:52] VITALS: BP 124/69; PULSE 76; RESP 16; TEMP 98.4; O2SAT 98
[2024-09-10] MEDS: LACTULOSE 20Gm/30ML SOLN PO SCH (09:56)
[2024-09-10] MEDS: ONDANSETRON HCL 4 MG/2 ML VIAL IV PRN (10:43)
--- NOTE | 2024-09-10 10:53 | DVHDS2 ---
Discharge Summary Date of Admission Sep 07, 2024 at 20:59 Date of Discharge: Sep 10, 2024 Labs/Diagnostic Data: Laboratory Results Test 09/10/24 06:08 09/08/24 06:36 09/07/24 18:25 09/07/24 16:32 POC Glucose 103 mg/dl (70-106) White Blood Count 6.5 10^3/uL (4.4-10.8) Red Blood Count 4.21 10^6/uL (4.0-5.20) Hemoglobin 11.5 g/dL (12.2-16.2) Hematocrit 35.3 % (36.0-46.0) Mean Corpuscular Volume 83.7 fL (80.0-100.0) Mean Corpuscular Hemoglobin 27.4 pg (28.0-32.0) Mean Corpuscular Hemoglobin Concent 32.7 g/dL (32.0-36.0) Red Cell Distribution Width 14.9 % (11.8-14.3) Platelet Count 175 10^3/uL (140-450) Mean Platelet Volume 7.1 fL (6.9-10.8) Neutrophils (%) (Auto) 38.7 % (37.0-80.0) Lymphocytes (%) (Auto) 45.7 % (10.0-50.0) Monocytes (%) (Auto) 10.3 % (0.0-12.0) Eosinophils (%) (Auto) 4.5 % (0.0-7.0) Basophils (%) (Auto) 0.8 % (0.0-2.0) Neutrophils # (Auto) 2.5 10 ^3/uL (1.6-8.6) Lymphocytes # (Auto) 3.0 10 ^3/uL (0.4-5.4) Monocytes # (Auto) 0.7 10 ^3/uL (0-1.3) Eosinophils # (Auto) 0.3 10 ^3/uL (0-0.8) Basophils # (Auto) 0.1 10 ^3/uL (0-0.2) Nucleated Red Blood Cells 0.1 % Sodium Level 141 mmol/L (136-145) Potassium Level 4.3 mmol/L (3.5-5.1) Chloride Level 106 mmol/L (98-107) Carbon Dioxide Level 27 mmol/L (20-31) Anion Gap 8 (5-15) Blood Urea Nitrogen 18 mg/dL (9-23) Creatinine 1.03 mg/dL (0.550-1.02) Glomerular Filtration Rate Calc 52 mL/min (>90) BUN/Creatinine Ratio 17.5 (10.0-20.0) Serum Glucose 96 mg/dL (74-106) Calcium Level 10.0 mg/dL (8.7-10.4) Total Bilirubin 0.4 mg/dL (0.2-1.0) Aspartate Amino Transferase (AST) 13 U/L (13-40) Alanine Aminotransferase (ALT) 14 U/L (7-40) Alkaline Phosphatase 75 U/L (46-116) Total Protein 6.3 g/dL (5.7-8.2) Albumin 4.0 g/dL (3.2-4.8) Troponin I High Sensitivity 21 ng/L (</=34) Urine Color Colorless (Yellow) Urine Clarity Clear (Clear) Urine pH 6.5 (5.0-9.0) Urine Specific [place] 1.007 (1.001-1.035) Urine Protein Negative (Negative) Urine Ketones Negative (Negative) Urine Blood Negative /uL (Negative) Urine Nitrite Negative (Negative) Urine Bilirubin Negative (Negative) Urine Urobilinogen Normal mg/dL (Negative) Urine Leukocyte Esterase Negative /uL (Negative) Urine RBC <1 /hpf (0 - 4) Urine WBC 1 /hpf (0 - 5) Urine Squamous Epithelial Cells Few /hpf (<5) Urine Bacteria Few /hpf (None Seen) Urine Glucose Normal mg/dL (Normal) Other Laboratory Tests 09/08/24 06:36 Brief Hx & Hospital Course: 89-year-old female was admitted for chest pain. Troponins were found to be negative ACS was ruled out. Patient was seen and cleared for discharge by shrub grower. Likely chest pain was a result from anxiety. Patient was subsequently reporting right lower quadrant abdominal pain. However CT was negative for any acute findings. Patient was informed of findings and was agreeable to discharge. Patient was advised to follow up with outpatient shrub grower within two weeks. Condition at Discharge: Fair Final Diagnosis/Problems List 1. Chest pain likley related to anxiety 2. HLD 3. Hypothyroid 4. S/p pacemaker placement 5. DM II & hyperglycemia 6. RLQ pain likley related to constipation Discharge Disposition: Home Discharge Instruct/Medications Diet: Cardiac 2g Na,low cholest Activity: No Restrictions, As Tolerated Follow Up/Referral: PCP within 1 week Discharge Statement: "Patient was advised to return to the ER or call 911 if any headaches, dizziness, shortness of breath, chest pain, abdominal pain, bleeding, fevers, or worsening of medical condition. Patient was counseled about treatment plan, medications, possible side effects, patientverbalized understanding. All questions were answered to the best of my ability. This discharge took greater then 30 minutes in planning, reviewing documentation, counseling the patient, and discussing with other team members." ASSESSMENT ASSESSMENT Assessment 1. Chest pain likley related to anxiety 2. HLD 3. Hypothyroid 4. S/p pacemaker placement 5. DM II & hyperglycemia 6. RLQ pain likley related to constipation FAISAL HEMPHILL [facility] Sep 10, 2024 10:53
[2024-09-10 12:44] VITALS: BP 142/52; PULSE 71; RESP 16; TEMP 98; O2SAT 95
--- NOTE | 2024-09-10 12:48 | DVHPN2 ---
Progress Note - Dictate Date Seen: Sep 10, 2024 Medical Necessity Reason Pt with a Central, PICC or Fol: No vital signs Vital Sign Date Time Temp Pulse Resp B/P (MAP) Pulse Ox O2 Delivery O2 Flow Rate FiO2 09/10/24 10:18 70 147/65 09/10/24 08:52 98.4 16 98 98.4 09/10/24 08:00 Room Air* 0 21 Total Intake and Output 09/09/24 09/09/24 09/10/24 15:00 23:00 07:00 Intake Total 1536 ml 600 ml Balance 1536 ml 600 ml medications Current Medications Medications Dose Ordered Sig/Abraham Route Start Time Stop Time Status Last Admin Dose Admin Acetaminophen/ Hydrocodone Bitart 1 tab Q4HP PRN PO 09/07/24 21:00 Ondansetron HCl 4 mg Q4HP PRN IV 09/07/24 21:00 09/10/24 10:43 4 MG Docusate Sodium 100 mg BIDPRN PRN PO 09/07/24 21:00 Enoxaparin Sodium 40 mg DAILY SC 09/08/24 10:00 09/10/24 10:19 40 MG Acetaminophen 650 mg Q6HP PRN PO 09/07/24 21:00 09/09/24 11:02 650 MG Nitroglycerin 0.4 mg Q5MINP PRN SL 09/07/24 21:00 Carvedilol 3.125 mg BID PO 09/07/24 22:00 09/10/24 10:18 3.125 MG EZETIMIBE 10 mg DAILY PO 09/08/24 10:00 09/10/24 10:18 10 MG Levothyroxine Sodium 100 mcg DAILY@0600 PO 09/08/24 06:00 09/10/24 06:45 100 MCG Metformin HCl 500 mg DAILY PO 09/08/24 10:00 09/10/24 10:16 500 MG Atorvastatin Calcium 40 mg DAILY PO 09/08/24 10:00 09/10/24 10:16 40 MG Magnesium Oxide 400 mg DAILY PO 09/08/24 10:00 09/10/24 10:20 400 MG Pantoprazole Sodium 40 mg BID PO 09/08/24 10:00 09/10/24 10:18 40 MG Diagnostic Test (Pha) 1 strip ACHS 09/07/24 22:00 09/10/24 11:34 1 STRIP Insulin Human Regular ACHS SC 09/07/24 22:00 09/09/24 11:10 2 UNITS Dextrose 50 ml UD PRN IV 09/07/24 21:15 Lactulose 30 ml Q6HR PO 09/09/24 18:00 Lactulose 30 ml BID PO 09/10/24 10:00 laboratory and microbiology Laboratory Tests 09/08/24 06:36 Test 09/08/24 06:36 Range/Units Serum Glucose 96 74-106 mg/dL Assessment/Plan 89 y/o Female patient of Dr Joseph Marie with h/o SSS, hypertension, hyperlipidemia, DM2, TIA, CAD with CABG, PM in situ, hypothyroidism and UTIs presented to the hospital with complaints of severe pain, numbness and cold feeling in her hands. Pt states she got up in the morning on 09/06/24 with the house feeling cold. She states after walking into the kitchen her hands felt frozen and numb and began to have severe pain resulting in limited mobility. Patient states this upset her very much and she began to have SOB with some associated chest pressure so she called her daughter to call EMS. On my initial assessment of the patient, she is still very concerned about the pain in her hands. She states this is not new and worsens with cold weather. She has been referred to rheumatology as outpatient but has not yet seen them per her report. She denies any further CP or SOB. Denies palpitations, lightheadeness, dizziness, or syncope. The initial ED HPI states patient has a pacemaker and a fall, however this occurred back in June of this year. PM was placed 06/15/24 and patient fell about a week later but came to the hospital at that time with full evaluation and PM interrogation showing normal function. This is not a concern for this admission. HS troponin CXR - no acute cardiopulmonary abnormalities EKG - normal sinus rhythm with RBBB at 71 bpm ECHO 06/18/24 Technically limited study secondary to poor acoustic windows. Left ventricle was normal-sized with normal systolic function. Concentric left ventricular hypertrophy was seen. LVEF was 65-70%. Right ventricle was normal-sized with normal systolic function. Left atrium was dilated. Right atrium was mildly dilated. Aortic valve was not well visualized. Can not rule out previously placed tissue prosthetic valve. There was no aortic insufficiency. Aortic sclerosis with no stenosis can not be ruled out. Mitral valve: Mitral valve was not well visualized. Mitral valvular calcification versus old mitral valve replacement is seen. There was no mitral regurgitation. Moderate mitral stenosis is observed. There was moderate tricuspid regurgitation. Pulmonary valve was not well visualized. Right ventricular systolic pressure was assessed around 45 mm Hg. There was no pericardial effusion. Physical exam: General: No acute distress. Awake and conversant. Neck: Neck is supple. No masses or thyromegaly, no JVD, No carotid bruit. Respiratory: Respirations are non-labored. Lungs are clear to auscultation. Skin: Warm. CV: RRR, Normal heart sounds, no murmurs. No lower extremity edema. PM to left chest. Neuro: AAo x 4 89 y/o Female patient of Dr Joseph Marie with h/o Afib, hypertension, hyperlipidemia, DM2, TIA, CAD with CABG, PM in situ, hypothyroidism and UTIs presented to the hospital with complaints of severe pain, numbness and cold feeling in her hands. Assessments: Chest pressure SOB PM in situ Bilateral hand pain Bilateral paresthesias of the hands hypertension hyperlipidemia DM2 Anxiety CAD with h/o CABG Cardiac recommendations: PM ([facility]) interrogation requested (can be performed as outpatient) Patient's chest pain and SOB appears secondary to patient becoming upset and anxious over the patient in her hands. Perhaps anxiety or panic attack should be considered in light of negative troponin levels. No need for ischemic workup at this time. asa 81mg daily atorvastatin 40mg daily zetia 10mg daily synthroid 100mcg daily coreg 3.125mg BID Mgt in telemetry Cardiac monitoring Ongoing rate and rhythm surveillance Hemodynamic monitoring. Avoid hypertension and hypotension. Monitor and maintain electrolytes and renal function. Supplement as needed to maintain K > 4.0 and Mg > 2.0. Monitor Hgb and transfuse if Hgb < 7.0. Lifestyle and risk modification counseling All available labs, EKGs, and images were personally reviewed Cardiac lewis, stable Plan of care discussed with and agreed upon by the patient/Primary RN. Prognosis: Guarded Thank you for allowing me to participate in the care of this patient. Further recommendations will depend on clinical progression, hospitalist, and other consultants. Will continue to follow with Primary. If you have any questions, please do not hesitate to contact me. A total of 55 minutes was spent reviewing the patient record, examining the patient, making a diagnostic and therapeutic plan, discussing this plan with medical personnel, following up on diagnostic studies and following the patient for clinical stability including any and all procedures. At least 50% of this time was spent in direct, [id number] contact. Plan discussed with: Patient, Other (nurse) LISA OSPINA MD Sep 10, 2024 12:48
== END 2024-09-10 15:20 | disposition home or self-care (01) | DRG 392 ==
LOC: ER 15:17 → TELE 20:59 → TELE-WESTW 23:37
PROVIDERS: ADMIT Nurse Practitioner; ATTEND Nurse Practitioner
DX: K59.00 Constipation, unspecified (principal); E03.9 Hypothyroidism, unspecified; E11.65 Type 2 diabetes mellitus with hyperglycemia; I10 Essential (primary) hypertension; I48.91 Unspecified atrial fibrillation; I25.10 Atherosclerotic heart disease of native coronary artery without angina pectoris; I45.10 Unspecified right bundle-branch block; F41.9 Anxiety disorder, unspecified; I08.1 Rheumatic disorders of both mitral and tricuspid valves; R20.2 Paresthesia of skin; M79.641 Pain in right hand; M79.642 Pain in left hand; I49.5 Sick sinus syndrome; E78.5 Hyperlipidemia, unspecified; Z88.5 Allergy status to narcotic agent; Z79.2 Long term (current) use of antibiotics; Z79.899 Other long term (current) drug therapy; Z95.1 Presence of aortocoronary bypass graft; Z90.49 Acquired absence of other specified parts of digestive tract; Z86.73 Personal history of transient ischemic attack (TIA), and cerebral infarction without residual deficits; Z95.0 Presence of cardiac pacemaker; Z79.82 Long term (current) use of aspirin
CPT/HCPCS: 36415; 71045; 74021; 74176; 80048; 80053; 81001; 82962; 84484; 85025; 93005; 99291; G0378; J1815; J2405

== ENCOUNTER 2024-10-18 22:52 | Inpatient (IN) | payer MEDICARE, MEDICAID ==
[~2024-10-18] VITALS: Ht 144.8 cm; Wt 65.9 kg
[~2024-10-18 22:52] MED LIST changes: -CEPH500C PO; -DOXY100C4 PO
[2024-10-18 23:51] LABS: Basophils # (auto) 0.1 10 ^3/uL (0-0.2); Eosinophils # (auto) 0.2 10 ^3/uL (0-0.8)
[2024-10-18 23:53] VITALS: PULSE 60; RESP 16; O2SAT 100
[2024-10-18 23:53] LABS: Basophils % (auto) 0.7 % (0.0-2.0); Eosinophils % (auto) 1.4 % (0.0-7.0); Hematocrit 33.8 % (36.0-46.0); Lymphocytes # (auto) 3.4 10 ^3/uL (0.4-5.4); Lymphocytes % (auto) 32.9 % (10.0-50.0); Mean Corpuscular Hemoglobin 27.3 pg (28.0-32.0); Mean Corpuscular Hgb Conc. 32.7 g/dL (32.0-36.0); Mean Corpuscular Volume 83.5 fL (80.0-100.0); Monocytes # (auto) 0.8 10 ^3/uL (0-1.3); Monocytes % (auto) 7.6 % (0.0-12.0); Neutrophils % (auto) 57.4 % (37.0-80.0); Nucleated Red Blood Cells % 0.1 %; Platelet Count (auto) 179 10^3/uL (140-450); Red Blood Cells 4.05 10^6/uL (4.0-5.20); Red Cell Distribution Width 14.9 % (11.8-14.3); White Blood Cell 10.5 10^3/uL (4.4-10.8)
[2024-10-19] VITALS (9 sets, daily range): BP systolic 101–114; BP diastolic 47–70; PULSE 60–77; RESP 14–18; TEMP 36.7; O2SAT 96–99
[2024-10-19 00:06] LABS: Albumin 3.8 g/dL (3.2-4.8); Alkaline Phosphatase 67 U/L (46-116); Anion Gap 5 (5-15); Aspartate Aminotransferase 15 U/L (13-40); BUN/Creatinine Ratio 17.8 (10.0-20.0); Calcium 9.2 mg/dL (8.7-10.4); Carbon Dioxide 26 mmol/L (20-31); Chloride 105 mmol/L (98-107); Potassium 4.4 mmol/L (3.5-5.1); Sodium 136 mmol/L (136-145); Total Protein 6.2 g/dL (5.7-8.2)
[2024-10-19 00:08] LABS: Alanine Aminotransferase < 9 U/L (7-40); Bilirubin, Total 0.2 mg/dL (0.2-1.0); Blood Urea Nitrogen 31 mg/dL (9-23); Glucose 109 mg/dL (74-106)
--- NOTE | 2024-10-19 00:19 | DVH ---
EXAM: XY CHEST XRAY 1 VIEW CLINICAL HISTORY: sob TECHNIQUE: Single AP view of the chest WID: COMPARISON: XY CHEST PORTABLE on DOS: 09/07/24, FINDINGS: Lines and tubes: Prior median sternotomy. There is a left-sided dual lead pacemaker in place. Chest: Mild cardiomegaly. Mild prominence of the central pulmonary vasculature. No pleural effusion, pneumothorax, or consolidation. The osseous structures are grossly intact. IMPRESSION: Mild cardiomegaly with mild prominence of the central pulmonary vasculature.
--- NOTE | 2024-10-19 01:40 | ED.PDOC ---
SOB-HPI HPI Comments 89-year-old female complaining of chest pain shortness a breath and weakness. Patient states she was diagnosed with COVID three days ago. She has been having cough and congestion. Today the coughing and shortness a breath became more worse. She has a home health nurse he was coming out to see her and then she was advised to come into the emergency department. Patient was initial blood pressure with EMS was 80s over 40s. Patient was given 250 lb mL bolus which did help. Patient denies any fever or chills. Nothing makes it better, walking and moving around makes it worse. 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 Hx Family History Family History: Reviewed,noncontributory to illness Social History Smoker: Non-Smoker Alcohol: Denies ETOH Use Drugs: Denies Drug Use Lives In: Home Constitutional: reports: fatigue, weakness; denies: chills, diaphoresis, fever, malaise, sweats, others EENTM: denies: blurred vision, double vision, ear bleeding, ear discharge, ear drainage, ear pain, ear ringing, eye pain, eye redness, hearing loss, mouth pain, mouth swelling, nasal discharge, nose bleeding, nose congestion, nose pain, photophobia, tearing, throat pain, throat swelling, voice changes, others Respiratory: reports: cough, SOB at rest; denies: hemoptysis, orthopnea, shortness of breath, SOB with excertion, stridor, wheezing, others Cardiovascular: denies: chest pain, dizzy spells, diaphoresis, Dyspnea on exertion, edema, irregular heart beat, left arm pain, lightheadedness, palpitations, PND, syncope, others Gastrointestinal: denies: abdomen distended, abdominal pain, blood streaked bowels, constipated, diarrhea, dysphagia, difficulty swallowing, hematemesis, melena, nausea, poor appetite, poor fluid intake, rectal bleeding, rectal pain, vomiting, others Genitourinary: denies: abnormal vagina bleeding, burning, dyspareunia, dysuria, flank pain, frequency, hematuria, incontinence, pain, , vagina discharge, urgency, others Neurological: denies: dizziness, fainting, headache, left sided numbness, left sided weakness, numbness, paresthesia, pre-existing deficit, right sided numbness, right sided weakness, seizure, speech problems, tingling, tremors, weakness, others Musculoskeletal: denies: back pain, gout, joint pain, joint swelling, muscle pain, muscle stiffness, neck pain, others Integumetry: denies: bruises, change in color, change in hair/nails, dryness, laceration, lesions, lumps, rash, wounds, others Allergic/Immunocompromised: denies: Difficulty Healing, Frequent Infections, Hives, Itching, others Hematologic/Lymphatic: denies: anemia, blood clots, easy bleeding, easy bruising, swollen glands, others Physical Exam General Appearance: Moderate Distress, Normal HEENT: Normal ENT Inspection, Pharynx Normal, TMs Normal Neck: Full Range of Motion, Non-Tender, Normal, Normal Inspection Respiratory: Chest Non-Tender, Lungs Clear, No Accessory Muscle Use, No Respiratory Distress, Normal Breath Sounds Cardiovascular: No Edema, No JVD, No Murmur, No Gallop, Normal Peripheral Pulses, Regular Rate/Rhythm Breast Exam: Deferred Gastrointestinal: No Organomegaly, Non Tender, No Pulsatile Mass, Normal Bowel Sounds, Soft Genitalia: Deferred Pelvic: Deferred Rectal: Deferred Extremities: No calf tenderness, Normal capillary refill, Normal inspection, Normal range of motion, Non-tender, No pedal edema Musculoskeletal : Apperance: Normal Neurologic: Alert, route inspector II-XII nml as Tested, No Motor Deficits, Normal Affect, Normal Mood, No Sensory Deficits Cerebellar Function: Normal Reflexes: Normal Skin: Dry, Normal Color, Warm Lymphatic: No Adenopathy Was a procedure done? Was a procedure done?: No Differential Dx Differential Diagnosis: Anxiety, Asthma, Bronchitis, Panic Attack, Pneumonia, Pulmonary Embolism, Respiratory Distress X-Ray, Labs, Meds, VS Vital Signs Date Time Temp Pulse Resp B/P (MAP) Pulse Ox O2 Delivery O2 Flow Rate FiO2 10/18/24 23:53 60 16 100 Nasal Cannula* 3 32 10/18/24 23:53 98.4 60 16 101/47 (65) 100 98.4 10/18/24 23:05 97.6 60 18 85/43 (57) 100 10/18/24 22:57 60 Lab Test 10/19/24 00:15 10/18/24 23:38 Range/Units Troponin I High Sensitivity 18 18 </=34 ng/L White Blood Count 10.5 4.4-10.8 10^3/uL Red Blood Count 4.05 4.0-5.20 10^6/uL Hemoglobin 11.0 L 12.2-16.2 g/dL Hematocrit 33.8 L 36.0-46.0 % Mean Corpuscular Volume 83.5 80.0-100.0 fL Mean Corpuscular Hemoglobin 27.3 L 28.0-32.0 pg Mean Corpuscular Hemoglobin Concent 32.7 32.0-36.0 g/dL Red Cell Distribution Width 14.9 H 11.8-14.3 % Platelet Count 179 140-450 10^3/uL Mean Platelet Volume 6.8 L 6.9-10.8 fL Neutrophils (%) (Auto) 57.4 37.0-80.0 % Lymphocytes (%) (Auto) 32.9 10.0-50.0 % Monocytes (%) (Auto) 7.6 0.0-12.0 % Eosinophils (%) (Auto) 1.4 0.0-7.0 % Basophils (%) (Auto) 0.7 0.0-2.0 % Neutrophils # (Auto) 6.0 1.6-8.6 10 ^3/uL Lymphocytes # (Auto) 3.4 0.4-5.4 10 ^3/uL Monocytes # (Auto) 0.8 0-1.3 10 ^3/uL Eosinophils # (Auto) 0.2 0-0.8 10 ^3/uL Basophils # (Auto) 0.1 0-0.2 10 ^3/uL Nucleated Red Blood Cells 0.1 % Sodium Level 136 136-145 mmol/L Potassium Level 4.4 3.5-5.1 mmol/L Chloride Level 105 98-107 mmol/L Carbon Dioxide Level 26 20-31 mmol/L Anion Gap 5 5-15 Blood Urea Nitrogen 31 H 9-23 mg/dL Creatinine 1.74 H 0.550-1.02 mg/dL Glomerular Filtration Rate Calc 28 >90 mL/min BUN/Creatinine Ratio 17.8 10.0-20.0 Serum Glucose 109 H 74-106 mg/dL Calcium Level 9.2 8.7-10.4 mg/dL Total Bilirubin 0.2 0.2-1.0 mg/dL Aspartate Amino Transferase (AST) 15 13-40 U/L Alanine Aminotransferase (ALT) < 9 7-40 U/L Alkaline Phosphatase 67 46-116 U/L B-Type Natriuretic Peptide 544.00 0-100 pg/mL Total Protein 6.2 5.7-8.2 g/dL Albumin 3.8 3.2-4.8 g/dL X-Ray, Labs, Meds, VS Comment Patient will be admitted for observation Pending COVID-19 testing Chest x-ray she was pulmonary congestion BNP mildly elevated but not too significant Time of 1ST Reevaluation: 01:40 Reevaluation 1ST: Improved Patient Education/Counseling: Diagnosis, Treatment Family Education/Counseling: Diagnosis Departure 1 Departure Time of Disposition: 01:39 Impression: Primary Impression: Acute renal failure Qualified Codes: N17.9 - Acute kidney failure, unspecified Additional Impressions: Chest pain Qualified Codes: R07.81 - Pleurodynia Hypotension Qualified Codes: I95.0 - Idiopathic hypotension Viral URI Disposition: ADMITTED INPATIENT Condition: Fair Critical Care Note Critical Care Time?: No Stability Stability form required: No Heart Score Heart Score: Heart Score Response (Comments) Value History Slightly Suspicious 0 EKG Normal 0 Age >65 2 Risk Factors 1 or 2 risk factors 1 Troponin Normal limit [address] Oct 19, 2024 01:40
[2024-10-19] MEDS: LEVALBUTEROL HCL 1.25 MG/3 ML NEB NEB ONE (01:46)
[2024-10-19] MEDS: LEVALBUTEROL HCL 1.25 MG/3 ML NEB ONE (01:46)
[2024-10-19] MEDS: cefTRIAXone 1GM/50ML D5W 50 ML IV ONE (02:04)
--- NOTE | 2024-10-19 02:39 | DVHHPRES ---
History of Present Illness Resident Creating Document: BETTY MCCARTHY RESIDENT History of Present Illness Patient is a 89-year-old female with past medical history of atrial fibrillation, DM, TIA, CAD s/p CABG, s/p pacemaker, hypothyroidism, hypertension, dyslipidemia, carpal tunnel syndrome, who came in due to shortness of breath. According to the patient, 3 days ago at [facility] she got her pneumonia, influenza, COVID and shingles vaccine. The next day, she started experiencing shortness of breaths, dizziness, generalized weakness along with abdominal pain, diarrhea and nausea. Patient also notes a productive cough bringing up whitish sputum. Patient has a home health nurse, who upon her visit yesterday on 10/18/2024 suggested that patient visits the ED which is what prompted this visit to the hospital. On review of systems patient is complaining of fatigue, fever, productive cough, shortness of breath, diarrhea with 3-4 BM daily and dysuria. Home medications: Albuterol, atorvastatin, carvedilol, ezetimibe, levothyroxine, magnesium oxide, metformin, metoprolol, omeprazole, ondansetron, Percocet Past Hospitalization: 09/10/2024 for noncardiac chest pain Past Medical History atrial fibrillation, DM, TIA, CAD s/p CABG, s/p pacemaker, hypothyroidism, hypertension, dyslipidemia, carpal tunnel syndrome Past Surgical History CABG, pacemaker Smoke: No ALCOHOL: rare Drugs: None Lives: with Family Review of Systems Constitutional: Yes: Fever, Weakness, Malaise; No: Chills, Sweats, Other Eyes: No: Pain, Vision change, Conjunctivae inflammation, Eyelid inflammation, Other, Redness ENT: Nose discharge, Nose congestion, Throat pain; No: Ear pain, Ear discharge, Nose pain, Mouth pain, Mouth swelling, Throat swelling, Other Respiratory: Cough, Shortness of breath, SOB with excertion, Sputum; No: Dry, Wheezing, Hemoptysis, Pleuritic Pain, Wheezing, Other Cardiovascular: Chest Pain; No: Palpitations, Orthopnea, Paroxysmal Noc. Dyspn ea, Edema, Lt Headedness, Other Gastrointestinal: Nausea, Vomiting, Abdominal Pain, Diarrhea; No: Constipation, Melena, Hematochezia, Other Genitourinary: Dysuria; No Frequency, No Incontinence, No Hematuria, No Retention, No Other Musculoskeletal: No: other, neck pain, shoulder pain, arm pain, back pain, hand pain, leg pain, foot pain Skin: No: Rash, Lesions, Jaundice, Bruising, Other Neurological: No: Weakness, Numbness, Incoordination, Change in speech, Confus ion, Seizures, Other Allergies: Coded Allergies: Morphine (Verified Allergy, Unknown, 08/16/23) Exam Vital Signs Vital Signs Date Time Temp Pulse Resp B/P (MAP) Pulse Ox O2 Delivery O2 Flow Rate FiO2 10/19/24 01:46 14 99 Nasal Cannula* 3 32 10/18/24 23:53 60 10/18/24 23:53 98.4 101/47 (65) 98.4 General Appearance: Alert, Oriented X3, Cooperative, No acute distress HEENT: Atraumatic, PERRLA, EOMI, Mucous membr. moist/pink Respiratory: Normal air movement, Other (Trace crackles) Cardiovascular: Other (Systolic murmur heard) Abdominal: Normal bowel sounds, Other (Right lower quadrant tenderness to palpation) Extremities: No clubbing, No cyanosis, No edema, Other (Decreased but present bilateral pedal pulses) Skin: No rashes Neuro: Normal speech Psych/Mental Status: Mental status NL, Mood NL Labs/Xrays Labs Test 10/19/24 00:15 10/18/24 23:38 Range/Units Troponin I High Sensitivity 18 </=34 ng/L White Blood Count 10.5 4.4-10.8 10^3/uL Red Blood Count 4.05 4.0-5.20 10^6/uL Hemoglobin 11.0 L 12.2-16.2 g/dL Hematocrit 33.8 L 36.0-46.0 % Mean Corpuscular Volume 83.5 80.0-100.0 fL Mean Corpuscular Hemoglobin 27.3 L 28.0-32.0 pg Mean Corpuscular Hemoglobin Concent 32.7 32.0-36.0 g/dL Red Cell Distribution Width 14.9 H 11.8-14.3 % Platelet Count 179 140-450 10^3/uL Mean Platelet Volume 6.8 L 6.9-10.8 fL Neutrophils (%) (Auto) 57.4 37.0-80.0 % Lymphocytes (%) (Auto) 32.9 10.0-50.0 % Monocytes (%) (Auto) 7.6 0.0-12.0 % Eosinophils (%) (Auto) 1.4 0.0-7.0 % Basophils (%) (Auto) 0.7 0.0-2.0 % Neutrophils # (Auto) 6.0 1.6-8.6 10 ^3/uL Lymphocytes # (Auto) 3.4 0.4-5.4 10 ^3/uL Monocytes # (Auto) 0.8 0-1.3 10 ^3/uL Eosinophils # (Auto) 0.2 0-0.8 10 ^3/uL Basophils # (Auto) 0.1 0-0.2 10 ^3/uL Nucleated Red Blood Cells 0.1 % Sodium Level 136 136-145 mmol/L Potassium Level 4.4 3.5-5.1 mmol/L Chloride Level 105 98-107 mmol/L Carbon Dioxide Level 26 20-31 mmol/L Anion Gap 5 5-15 Blood Urea Nitrogen 31 H 9-23 mg/dL Creatinine 1.74 H 0.550-1.02 mg/dL Glomerular Filtration Rate Calc 28 >90 mL/min BUN/Creatinine Ratio 17.8 10.0-20.0 Serum Glucose 109 H 74-106 mg/dL Calcium Level 9.2 8.7-10.4 mg/dL Total Bilirubin 0.2 0.2-1.0 mg/dL Aspartate Amino Transferase (AST) 15 13-40 U/L Alanine Aminotransferase (ALT) < 9 7-40 U/L Alkaline Phosphatase 67 46-116 U/L B-Type Natriuretic Peptide 544.00 0-100 pg/mL Total Protein 6.2 5.7-8.2 g/dL Albumin 3.8 3.2-4.8 g/dL Assessment/Plan Assessment/Plan Acute respiratory failure on 3 L O2 via NC Possible upper respiratory tract infection - CXR: Mild cardiomegaly with mild prominence of the central pulmonary vasculature - ordered COVID and influenza testing CONSTANTINO likely hemodynamically mediated/VMN on possible CKD 2/3? - monitor Type 2 diabetes, A1c 6.2 on 06/18/2024 - monitor Acute onset diarrhea Anemia, iron deficiency versus of chronic disease - ordered stool culture - Ordered stool C diff - ordered FOBT - ordered iron panel Hypertension Dyslipidemia CAD s/p CABG - currently holding antihypertensives owing to soft blood pressure - atorvastatin 40 mg History of AFib History of TIA History of sick sinus syndrome s/p pacemaker - monitor PUD prophylaxis: Pepcid 20 mg DVT prophylaxis: SCD Goals of care: Full code, discussed for >16 minutes on 10/19/2024 Plan discussed with patient Plan discussed with Dr. Benedict Plan discussed with: Patient, Other (RN) My Orders Orders - BETTY MCCARTHY RESIDENT Procedure Category Date Status Time Admit ADMIT 10/19/24 Transmitted 02:32 Oxygen By Nasal RT 10/19/24 Transmitted Cannula 02:32 Stat Ekg For Chest VALENTINO 10/19/24 In Process Pain 02:32 Notify Md Of Changes VALENTINO 10/19/24 In Process From Base 02:32 Rapid Influenza A&B LAB 10/19/24 Logged 02:32 Urinalysis LAB 10/19/24 Logged 02:32 Clostridium Difficile DEION 10/19/24 Logged Toxin 02:32 Stool Bacterial DEION 10/19/24 Logged Culture 02:32 Blood Culture DEION 10/19/24 Logged 02:32 Mrsa Screen DEION 10/19/24 Logged 02:32 Lactic Acid W/ Reflex LAB 10/19/24 Logged Order 02:32 Iron Panel LAB 10/19/24 Logged 02:32 Magnesium LAB 10/19/24 Logged 02:36 Phosphorus LAB 10/19/24 Logged 02:36 Ipratropium Medneb PHA 10/19/24 Logged (Atrovent Medneb) 06:00 Levalbuterol Hcl PHA 10/19/24 Transmitted (Xopenex Medneb) 06:00 Thyroid Stimulating LAB 10/19/24 Transmitted Hormone 02:38 Date of Service: Oct 19, 2024 Billing Provider: ELBA BENEDICT MD Common Visit Codes: 57698-[id number] INP/OBS CARE (HIGH) Secondary Visit Codes: 25089-[id number] CARE PLAN 30 MINUTES BETTY MCCARTHY Oct 19, 2024 02:39 ELBA BENEDICT MD Oct 19, 2024 08:25
[2024-10-19 03:48] LABS: % Iron Saturation 30.3 % (15-50)
[2024-10-19 03:50] LABS: Phosphorus 4.9 mg/dL (2.4-5.1)
[2024-10-19] MEDS: AZITHROMYCIN 500MG/ 250ML 250 ML IV ONE (04:02)
--- NOTE | 2024-10-19 04:10 | ECG ---
[facility] Test Date: 2024-10-18 Test Time: 22:57:38 Pat Name: LISA MACK Department: ED Room: [address] [place] [address] Gender: F Photographer'S Model: EDWIN : [id number] Requested By: EMERGENCY EMERGENCY Order Number: [id number] Reading MD: Measurements Intervals [place] Rate: 60 P: 0 MI: 179 QRS: -73 QRSD: 127 T: -75 QT: 467 QTc: 467 Interpretive Statements Atrial-paced rhythm Right bundle branch block LVH with IVCD and secondary repol abnrm Please click the below link to view image of tracing.
[2024-10-19 04:19] LABS: Magnesium 1.8 mg/dL (1.6-2.6)
[2024-10-19 04:20] LABS: INR 0.98 (0.9-1.15); Partial Thromboplastin Time 29.6 SEC (24.5-34.5); Prothrombin Time 10.4 sec (9.3-11.8)
[2024-10-19] MEDS: IPRATROPIUM BROM 0.5 MG/2.5ML INH SOL NEB SCH (06:01)
[2024-10-19] MEDS: LEVALBUTEROL HCL 1.25 MG/3 ML NEB NEB SCH (06:01)
[2024-10-19 07:37] LABS: COVID19 ANTIGEN SOFIA FIA POSITIVE (NEGATIVE)
[2024-10-19] MEDS ORDERED: FAMOTIDINE (10MG/ML) 2ML VL IV SCH (10:00)
[2024-10-19] MEDS: FAMOTIDINE (10MG/ML) 2ML VL IV SCH (10:07)
[2024-10-19] MEDS: ENOXAPARIN SOD 30 MG/0.3 ML SYRINGE SC SCH (10:09)
--- NOTE | 2024-10-19 10:10 | DVHINCON2 ---
Date of service: Oct 19, 2024 History of Present Illness HPI Patient is a 89-year-old female who presented with few days of shortness of breath/cough/pleuritic chest pain. She was found to have COVID few days back. Because of her worsening shortness of breath she presented to the hospital. Denies any angina. Chest pains have been pleuritic. No loss of consciousness. Patient does have a pacemaker ([employer]). Cardiology was involved for cardiac aspects of care. Home Meds Active Scripts Nutritional Supplements (Boost) But Pecn Liq, 1 PECN PO DAILY for 30 Days, #30 LIQ 3 Refills requesting chocolate Prov:JO ORDONEZ ALINING INSPECTOR 06/30/24 Magnesium Oxide (Magnesium Oxide) 400 Mg Tab, 400 MG PO DAILY for 30 Days, #30 TAB Prov:JO ORDONEZ ALINING INSPECTOR 06/30/24 Reported Medications Oxycodone W/ Acetaminophen (Apap/Oxycodone) 1 Tab Tab, 1 TAB PO UD for 7 Days, #30 06/20/24 Ondansetron Odt 4MG Tab (ZOFRAN PO) 4 Mg Tb, 4 MG PO UD for 15 Days, #30 ODT TAB-DISSOLVE IN MOUTH, THEN SWALLOW 06/20/24 Albuterol Sulfate (Albuterol Sulfate Hfa) 108 Mcg/Act Aer, 108 MCG IN UD for 33 Days, #6.7 06/20/24 Metoclopramide Hcl (Metoclopramide Hcl) 5 Mg Tab, 5 MG PO UD for 7 Days, #30 06/20/24 Carvedilol (Carvedilol) 3.125 Mg Tab, 1 TAB PO BID for 90 Days, #180 06/20/24 Levothyroxine Sodium (Levothyroxine Sodium) 100 Mcg Tab, 1 TAB PO DAILY for 90 Days, #90 06/20/24 Atorvastatin Calcium (Lipitor) 40 Mg Tab, 1 TAB PO DAILY for 90 Days, #90 06/20/24 Omeprazole (Omeprazole Dr) 20 Mg Cap, 1 CAP PO BID for 30 Days, #60 06/20/24 Ezetimibe (Zetia) 10 Mg Tab, 1 TAB PO DAILY for 30 Days, #30 06/20/24 Metformin Hydrochloride (Metformin Hcl) 500 Mg Tab, 1 TAB PO DAILY for 30 Days, #30 06/20/24 Past Medical History Others Past medical history reportedly includes hypertension, hyperlipidemia, CKD, GERD, diastolic heart failure, valvular heart disease (status post mitral valve replacement), pulmonary hypertension, hypothyroidism, TIA, carpal tunnel, obesity, old history of cardiac surgery (valve replacement on possible bypass? ) and history of cholecystectomy. Smoker: No Hx (Negative) Alocohol: None Review of Systems Constitutional: Chills Ears, Nose, & Throat: Ear pain Pulmonary/Respiratory: Dyspnea, Cough Cardiovascular: Chest Pain (pleuritic) All Other Systems 14 point review of system was performed. Relevant findings as per above and as per HPI. Otherwise negative. H&P Exam Vital Signs Vital Signs Date Time Temp Pulse Resp B/P (MAP) Pulse Ox O2 Delivery O2 Flow Rate FiO2 10/19/24 08:37 Room Air* 0 21 10/19/24 08:34 97.9 81 18 100/39 (59) 100 97.9 General Appeara: Well developed Head Exam: Normal inspection Eye Exam: bilateral eye PERRL Pulmonary/Respiratory: Rhonci Cardiovascular/Chest: Regular rate, Diastolic murmur, Systolic murmur Peripheral Pulses: 2+ carotid (R), 2+ carotid (L), 2+ femoral (R), 2+ femoral (L), 2+ dorsalis pedis (R), 2+ dorsalis pedis (L), 2+ Radial (R), 2+ Radial (L) Abdominal Exam: Normal bowel sounds, Soft Neuro/Mental St: Alert, Oriented Appearance: Appropriate appearance Eye contact/ Speech: Cooperative Labs/Xrays Labs Test 10/19/24 06:47 10/19/24 03:40 10/19/24 03:15 10/19/24 00:15 Range/Units SARS-CoV-2 Antigen (Rapid) Positive NEGATIVE Prothrombin Time 10.4 9.3-11.8 sec Prothrombin Time INR 0.98 0.9-1.15 Activated Partial Thromboplast Time 29.6 24.5-34.5 SEC Lactic Acid Level 1.2 0.4-2.0 mmol/L Phosphorus Level 4.9 2.4-5.1 mg/dL Magnesium Level 1.8 1.6-2.6 mg/dL Iron Level 30 L 50-170 ug/dL Total Iron Binding Capacity 99 L 250-425 ug/dL Percent Iron Saturation 30.3 15-50 % Thyroid Stimulating Hormone (TSH) 2.89 0.55-4.78 uIU/mL Troponin I High Sensitivity 18 </=34 ng/L Test 10/18/24 23:38 Range/Units White Blood Count 10.5 4.4-10.8 10^3/uL Red Blood Count 4.05 4.0-5.20 10^6/uL Hemoglobin 11.0 L 12.2-16.2 g/dL Hematocrit 33.8 L 36.0-46.0 % Mean Corpuscular Volume 83.5 80.0-100.0 fL Mean Corpuscular Hemoglobin 27.3 L 28.0-32.0 pg Mean Corpuscular Hemoglobin Concent 32.7 32.0-36.0 g/dL Red Cell Distribution Width 14.9 H 11.8-14.3 % Platelet Count 179 140-450 10^3/uL Mean Platelet Volume 6.8 L 6.9-10.8 fL Neutrophils (%) (Auto) 57.4 37.0-80.0 % Lymphocytes (%) (Auto) 32.9 10.0-50.0 % Monocytes (%) (Auto) 7.6 0.0-12.0 % Eosinophils (%) (Auto) 1.4 0.0-7.0 % Basophils (%) (Auto) 0.7 0.0-2.0 % Neutrophils # (Auto) 6.0 1.6-8.6 10 ^3/uL Lymphocytes # (Auto) 3.4 0.4-5.4 10 ^3/uL Monocytes # (Auto) 0.8 0-1.3 10 ^3/uL Eosinophils # (Auto) 0.2 0-0.8 10 ^3/uL Basophils # (Auto) 0.1 0-0.2 10 ^3/uL Nucleated Red Blood Cells 0.1 % Sodium Level 136 136-145 mmol/L Potassium Level 4.4 3.5-5.1 mmol/L Chloride Level 105 98-107 mmol/L Carbon Dioxide Level 26 20-31 mmol/L Anion Gap 5 5-15 Blood Urea Nitrogen 31 H 9-23 mg/dL Creatinine 1.74 H 0.550-1.02 mg/dL Glomerular Filtration Rate Calc 28 >90 mL/min BUN/Creatinine Ratio 17.8 10.0-20.0 Serum Glucose 109 H 74-106 mg/dL Calcium Level 9.2 8.7-10.4 mg/dL Total Bilirubin 0.2 0.2-1.0 mg/dL Aspartate Amino Transferase (AST) 15 13-40 U/L Alanine Aminotransferase (ALT) < 9 7-40 U/L Alkaline Phosphatase 67 46-116 U/L B-Type Natriuretic Peptide 544.00 0-100 pg/mL Total Protein 6.2 5.7-8.2 g/dL Albumin 3.8 3.2-4.8 g/dL Assessment/Plan Plan Patient is a 89-year-old female who presented with few days of shortness of breath/cough/pleuritic chest pain. She was found to have COVID few days back. Because of her worsening shortness of breath she presented to the hospital. Denies any angina. Chest pains have been pleuritic. No loss of consciousness. Patient does have a pacemaker ([employer]). Cardiology was involved for cardiac aspects of care. Not in acute distress. Mucosa is pink and wet. No carotid bruit. Not using accessory muscles of breathing. There is no goiter. Lungs reveal rhonchi. Cardiac: Regular, no thrill/gallop. Systolic murmur and diastolic rumble is heard at the apex and left heart border. Old healed midsternal scar is seen. Dressing is over the site of pacemaker change. Abdomen is soft. There is no hepatomegaly. There is no gross mass. Obesity seen. Extremities do not reveal edema. Dorsalis pedis is 2+ bilateral. Past medical history reportedly includes hypertension, hyperlipidemia, CKD, GERD, diastolic heart failure, valvular heart disease (status post mitral valve replacement), pulmonary hypertension, hypothyroidism, TIA, carpal tunnel, obesity, old history of cardiac surgery (valve replacement on possible bypass? ) and history of cholecystectomy. Nuclear stress test performed in [facility] on April 14, 2024: No ischemia, ejection fraction of 54% Echocardiogram performed in [facility] on April 13, 2024 revealed ejection fraction of 65-70%, severe left atrial enlargement, mild right atrial enlargement: Is your bioprosthetic valve in aortic position? , [id number] AI and questionable mild aortic stenosis, component of mitral stenosis and right ventricular systolic pressure of 45 mm Hg Echocardiogram of June 18, 2024 revealed ejection fraction of 65-70%, moderate mitral stenosis (versus prior mitral valve surgery/replacement), mild TR and right ventricular systolic pressure 45 mm Hg Creatinine: 1.74 Potassium: 4.4 TSH: 2.89 Troponin (high sensitive): 18-18 BNP: 544 COVID was positive Chest x-ray revealed: IMPRESSION: Mild cardiomegaly with mild prominence of the central pulmonary vasculature. EKG reviewed paced atrial rhythm, left anterior hemiblock Tele reveals paced rhythm Patient is a 89-year-old female who presented with cough, shortness of breath and poorly chest pain. She does have COVID bronchitis. Acute coronary syndrome is not considered. At the time of the evaluation, the patient is not hypoxic. Does have a [employer] pacemaker which was interrogated recently as outpatient. No concern for new arrhythmia COVID disease Status post pacemaker secondary to sick sinus syndrome Valvular heart disease, status post mitral valve replacement Diastolic heart failure Pulmonary hypertension CKD Hyperlipidemia Morbid obesity Cardiac suggestion for management: Management on tele Follow-up electrolytes and kidney function tests and correct abnormalities Cardiac-lewis, the patient can be followed as outpatient Thank you for consultation Further evaluation and management depends on the above and clinical course A total of 75 minutes was spent reviewing the patient record, examining the patient, making a diagnostic and therapeutic plan, discussing this plan with medical personnel, following up on diagnostic studies and following the patient for clinical stability excluding any and all procedures. At least 50% of this time was spent in direct, [id number] contact. Thank you for allowing me to participate in this patient's care. Further recommendations will depend on patient's clinical course. Please do not hesitate to contact me if you have any questions or concerns. This medical document was created using electronic medical record system with [employer] computerized dictation system. Although this document has been carefully reviewed, there may still be some phonetic and typographical errors. These areas are purely typographical due to the imperfection of the software programs, and do not reflect any compromise in the patient's medical care. Plan discussed with: Patient, Other (nurse) LISA OSPINA MD Oct 19, 2024 10:10
--- NOTE | 2024-10-19 10:17 | DVHHP2 ---
Allergies: Coded Allergies: Morphine (Verified Allergy, Unknown, 08/16/23) Home Meds Active Scripts Albuterol Sulfate (Albuterol Sulfate Hfa) 108 Mcg/Act Aer, 108 MCG IN Q4HP PRN for 30 Days, #1 AER Prov:JO ORDONEZ CHIEF ANALYTICS OFFICER 10/19/24 Nutritional Supplements (Boost) But Pecn Liq, 1 PECN PO DAILY for 30 Days, #30 LIQ 3 Refills requesting chocolate Prov:JO ORDONEZ CHIEF ANALYTICS OFFICER 06/30/24 Magnesium Oxide (Magnesium Oxide) 400 Mg Tab, 400 MG PO DAILY for 30 Days, #30 TAB Prov:OJ ORDONEZ CHIEF ANALYTICS OFFICER 06/30/24 Reported Medications Oxycodone W/ Acetaminophen (Apap/Oxycodone) 1 Tab Tab, 1 TAB PO UD for 7 Days, #30 06/20/24 Ondansetron Odt 4MG Tab (ZOFRAN PO) 4 Mg Tb, 4 MG PO UD for 15 Days, #30 ODT TAB-DISSOLVE IN MOUTH, THEN SWALLOW 06/20/24 Albuterol Sulfate (Albuterol Sulfate Hfa) 108 Mcg/Act Aer, 108 MCG IN UD for 33 Days, #6.7 06/20/24 Metoclopramide Hcl (Metoclopramide Hcl) 5 Mg Tab, 5 MG PO UD for 7 Days, #30 06/20/24 Carvedilol (Carvedilol) 3.125 Mg Tab, 1 TAB PO BID for 90 Days, #180 06/20/24 Levothyroxine Sodium (Levothyroxine Sodium) 100 Mcg Tab, 1 TAB PO DAILY for 90 Days, #90 06/20/24 Atorvastatin Calcium (Lipitor) 40 Mg Tab, 1 TAB PO DAILY for 90 Days, #90 06/20/24 Omeprazole (Omeprazole Dr) 20 Mg Cap, 1 CAP PO BID for 30 Days, #60 06/20/24 Ezetimibe (Zetia) 10 Mg Tab, 1 TAB PO DAILY for 30 Days, #30 06/20/24 Metformin Hydrochloride (Metformin Hcl) 500 Mg Tab, 1 TAB PO DAILY for 30 Days, #30 06/20/24 Current Medications Current Medications Medications (Trade) Dose Ordered Sig/Abraham Route PRN Reason Start Time Stop Time Status Last Admin Atorvastatin Calcium (Lipitor) 40 mg HS PO 10/19/24 22:00 10/19/24 18:03 DC Ceftriaxone Sodium 50 ml @ 100 mls/hr DAILY@0200 IV 10/20/24 02:00 10/19/24 18:03 DC Ondansetron HCl (Zofran) 4 mg Q4HPRN PRN IV NAUSEA / VOMITING 10/19/24 16:30 10/19/24 18:03 DC Loperamide HCl (Imodium Capsule) 2 mg PRN PRN PO FOR DIARRHEA 10/19/24 16:30 10/19/24 18:03 DC Vital Signs Vital Signs Date Time Temp Pulse Resp B/P (MAP) Pulse Ox O2 Delivery O2 Flow Rate FiO2 10/19/24 17:35 77 15 114/70 (85) 96 10/19/24 15:28 36.7 10/19/24 13:47 Nasal Cannula* 3 32 Results Labs Test 10/19/24 06:47 10/19/24 03:40 10/19/24 03:15 10/19/24 00:15 Range/Units SARS-CoV-2 Antigen (Rapid) Positive NEGATIVE Prothrombin Time 10.4 9.3-11.8 sec Prothrombin Time INR 0.98 0.9-1.15 Activated Partial Thromboplast Time 29.6 24.5-34.5 SEC Lactic Acid Level 1.2 0.4-2.0 mmol/L Phosphorus Level 4.9 2.4-5.1 mg/dL Magnesium Level 1.8 1.6-2.6 mg/dL Iron Level 30 L 50-170 ug/dL Total Iron Binding Capacity 99 L 250-425 ug/dL Percent Iron Saturation 30.3 15-50 % Thyroid Stimulating Hormone (TSH) 2.89 0.55-4.78 uIU/mL Troponin I High Sensitivity 18 </=34 ng/L Test 10/18/24 23:38 Range/Units White Blood Count 10.5 4.4-10.8 10^3/uL Red Blood Count 4.05 4.0-5.20 10^6/uL Hemoglobin 11.0 L 12.2-16.2 g/dL Hematocrit 33.8 L 36.0-46.0 % Mean Corpuscular Volume 83.5 80.0-100.0 fL Mean Corpuscular Hemoglobin 27.3 L 28.0-32.0 pg Mean Corpuscular Hemoglobin Concent 32.7 32.0-36.0 g/dL Red Cell Distribution Width 14.9 H 11.8-14.3 % Platelet Count 179 140-450 10^3/uL Mean Platelet Volume 6.8 L 6.9-10.8 fL Neutrophils (%) (Auto) 57.4 37.0-80.0 % Lymphocytes (%) (Auto) 32.9 10.0-50.0 % Monocytes (%) (Auto) 7.6 0.0-12.0 % Eosinophils (%) (Auto) 1.4 0.0-7.0 % Basophils (%) (Auto) 0.7 0.0-2.0 % Neutrophils # (Auto) 6.0 1.6-8.6 10 ^3/uL Lymphocytes # (Auto) 3.4 0.4-5.4 10 ^3/uL Monocytes # (Auto) 0.8 0-1.3 10 ^3/uL Eosinophils # (Auto) 0.2 0-0.8 10 ^3/uL Basophils # (Auto) 0.1 0-0.2 10 ^3/uL Nucleated Red Blood Cells 0.1 % Sodium Level 136 136-145 mmol/L Potassium Level 4.4 3.5-5.1 mmol/L Chloride Level 105 98-107 mmol/L Carbon Dioxide Level 26 20-31 mmol/L Anion Gap 5 5-15 Blood Urea Nitrogen 31 H 9-23 mg/dL Creatinine 1.74 H 0.550-1.02 mg/dL Glomerular Filtration Rate Calc 28 >90 mL/min BUN/Creatinine Ratio 17.8 10.0-20.0 Serum Glucose 109 H 74-106 mg/dL Calcium Level 9.2 8.7-10.4 mg/dL Total Bilirubin 0.2 0.2-1.0 mg/dL Aspartate Amino Transferase (AST) 15 13-40 U/L Alanine Aminotransferase (ALT) < 9 7-40 U/L Alkaline Phosphatase 67 46-116 U/L B-Type Natriuretic Peptide 544.00 0-100 pg/mL Total Protein 6.2 5.7-8.2 g/dL Albumin 3.8 3.2-4.8 g/dL Microbiology Date/Time Source Procedure Growth Status 10/19/24 03:15 Blood Blood Culture - Preliminary NO GROWTH AFTER 24 HOURS OF INCUBATION. Resulted JO ORDONEZ NP Oct 19, 2024 10:17
[2024-10-19] MEDS ORDERED: ALBU108A5 IN (10:24)
[2024-10-19] MEDS: AZITHROMYCIN 500MG/ 250ML 250 ML IV SCH (10:26)
--- NOTE | 2024-10-19 10:27 | DVHDS2 ---
Discharge Summary Date of Admission Oct 19, 2024 at 02:32 Date of Discharge: Oct 19, 2024 Labs/Diagnostic Data: Laboratory Results Test 10/19/24 06:47 10/19/24 03:40 10/19/24 03:15 10/19/24 00:15 SARS-CoV-2 Antigen (Rapid) Positive (NEGATIVE) Prothrombin Time 10.4 sec (9.3-11.8) Prothrombin Time INR 0.98 (0.9-1.15) Activated Partial Thromboplast Time 29.6 SEC (24.5-34.5) Lactic Acid Level 1.2 mmol/L (0.4-2.0) Phosphorus Level 4.9 mg/dL (2.4-5.1) Magnesium Level 1.8 mg/dL (1.6-2.6) Iron Level 30 ug/dL (50-170) Total Iron Binding Capacity 99 ug/dL (250-425) Percent Iron Saturation 30.3 % (15-50) Thyroid Stimulating Hormone (TSH) 2.89 uIU/mL (0.55-4.78) Troponin I High Sensitivity 18 ng/L (</=34) Test 10/18/24 23:38 White Blood Count 10.5 10^3/uL (4.4-10.8) Red Blood Count 4.05 10^6/uL (4.0-5.20) Hemoglobin 11.0 g/dL (12.2-16.2) Hematocrit 33.8 % (36.0-46.0) Mean Corpuscular Volume 83.5 fL (80.0-100.0) Mean Corpuscular Hemoglobin 27.3 pg (28.0-32.0) Mean Corpuscular Hemoglobin Concent 32.7 g/dL (32.0-36.0) Red Cell Distribution Width 14.9 % (11.8-14.3) Platelet Count 179 10^3/uL (140-450) Mean Platelet Volume 6.8 fL (6.9-10.8) Neutrophils (%) (Auto) 57.4 % (37.0-80.0) Lymphocytes (%) (Auto) 32.9 % (10.0-50.0) Monocytes (%) (Auto) 7.6 % (0.0-12.0) Eosinophils (%) (Auto) 1.4 % (0.0-7.0) Basophils (%) (Auto) 0.7 % (0.0-2.0) Neutrophils # (Auto) 6.0 10 ^3/uL (1.6-8.6) Lymphocytes # (Auto) 3.4 10 ^3/uL (0.4-5.4) Monocytes # (Auto) 0.8 10 ^3/uL (0-1.3) Eosinophils # (Auto) 0.2 10 ^3/uL (0-0.8) Basophils # (Auto) 0.1 10 ^3/uL (0-0.2) Nucleated Red Blood Cells 0.1 % Sodium Level 136 mmol/L (136-145) Potassium Level 4.4 mmol/L (3.5-5.1) Chloride Level 105 mmol/L (98-107) Carbon Dioxide Level 26 mmol/L (20-31) Anion Gap 5 (5-15) Blood Urea Nitrogen 31 mg/dL (9-23) Creatinine 1.74 mg/dL (0.550-1.02) Glomerular Filtration Rate Calc 28 mL/min (>90) BUN/Creatinine Ratio 17.8 (10.0-20.0) Serum Glucose 109 mg/dL (74-106) Calcium Level 9.2 mg/dL (8.7-10.4) Total Bilirubin 0.2 mg/dL (0.2-1.0) Aspartate Amino Transferase (AST) 15 U/L (13-40) Alanine Aminotransferase (ALT) < 9 U/L (7-40) Alkaline Phosphatase 67 U/L (46-116) B-Type Natriuretic Peptide 544.00 pg/mL (0-100) Total Protein 6.2 g/dL (5.7-8.2) Albumin 3.8 g/dL (3.2-4.8) Other Laboratory Tests 10/18/24 23:38 Final Diagnosis/Problems List SOB- on room air doing well Pleuritic chest pain COVID 19 Discharge Disposition: Home Discharge Instruct/Medications Diet: Consistent carbohydrate Activity: strictlyselfquarantine&[id number] Medications: albuterol inhaler Discharge Statement: "Patient was advised to return to the ER or call 911 if any headaches, dizziness, shortness of breath, chest pain, abdominal pain, bleeding, fevers, or worsening of medical condition. Patient was counseled about treatment plan, medications, possible side effects, patientverbalized understanding. All questions were answered to the best of my ability. This discharge took greater then 30 minutes in planning, reviewing documentation, counseling the patient, and discussing with other team members." ASSESSMENT ASSESSMENT Assessment SOB- on room air doing well Pleuritic chest pain COVID 19 JO ORDONEZ NP Oct 19, 2024 10:27
[2024-10-19] MEDS: LOPERAMIDE HCL 2 MG CAP/TAB PO ONE (11:42)
[2024-10-19] MEDS: ONDANSETRON HCL 4 MG/2 ML VIAL IV ONE (11:43)
[2024-10-19] MEDS: SODIUM CHLORIDE 0.9% 1,000 ML IV ONE (11:45)
--- NOTE | 2024-10-19 16:26 | DVHPN2 ---
Progress Note - Dictate vital signs Vital Sign Date Time Temp Pulse Resp B/P (MAP) Pulse Ox O2 Delivery O2 Flow Rate FiO2 10/19/24 15:42 76 16 110/67 (81) 94 10/19/24 15:28 36.7 10/19/24 13:47 Nasal Cannula* 3 32 Total Intake and Output 10/18/24 10/18/24 10/19/24 15:00 23:00 07:00 Intake Total 100 ml Balance 100 ml medications Current Medications Medications Dose Ordered Sig/Abraham Route Start Time Stop Time Status Last Admin Dose Admin Ipratropium [place] 0.5 mg Q6HWA NEB 10/19/24 06:00 10/19/24 12:40 0.5 MG Levalbuterol HCl 1.25 mg Q6HR NEB 10/19/24 06:00 10/19/24 12:40 1.25 MG Atorvastatin Calcium 40 mg HS PO 10/19/24 22:00 Ceftriaxone Sodium 50 ml @ 100 mls/hr DAILY@0200 IV 10/20/24 02:00 Azithromycin 250 ml @ 125 mls/hr DAILY IV 10/19/24 10:00 10/19/24 10:26 125 MLS/HR Famotidine 10 mg Q24H IV 10/19/24 10:00 10/19/24 10:07 10 MG Enoxaparin Sodium 30 mg DAILY SC 10/19/24 10:00 10/19/24 10:09 30 MG laboratory and microbiology Laboratory Tests 10/18/24 23:38 Test 10/18/24 23:38 Range/Units Serum Glucose 109 H 74-106 mg/dL JO ORDONEZ NP Oct 19, 2024 16:26
[2024-10-19] MEDS ORDERED: LOPERAMIDE HCL 2 MG CAP/TAB PO PRN (16:30)
[2024-10-19] MEDS ORDERED: ONDANSETRON HCL 4 MG/2 ML VIAL IV PRN (16:30)
[2024-10-19] MEDS ORDERED: ATORVASTATIN 20 MG TAB PO SCH (22:00)
[2024-10-20] MEDS ORDERED: cefTRIAXone 1GM/50ML D5W 50 ML IV SCH (02:00)
--- NOTE | 2024-10-20 12:13 | DVHDS2 ---
Discharge Summary Date of Admission Oct 19, 2024 at 02:32 Date of Discharge: Oct 19, 2024 Admitting Diagnosis Shortness of breath Covid 19- was diagnosed positive outpatient prior to ER admission Wounds: none Labs/Diagnostic Data: Laboratory Results Test 10/19/24 06:47 10/19/24 03:40 10/19/24 03:15 10/19/24 00:15 SARS-CoV-2 Antigen (Rapid) Positive (NEGATIVE) Prothrombin Time 10.4 sec (9.3-11.8) Prothrombin Time INR 0.98 (0.9-1.15) Activated Partial Thromboplast Time 29.6 SEC (24.5-34.5) Lactic Acid Level 1.2 mmol/L (0.4-2.0) Phosphorus Level 4.9 mg/dL (2.4-5.1) Magnesium Level 1.8 mg/dL (1.6-2.6) Iron Level 30 ug/dL (50-170) Total Iron Binding Capacity 99 ug/dL (250-425) Percent Iron Saturation 30.3 % (15-50) Thyroid Stimulating Hormone (TSH) 2.89 uIU/mL (0.55-4.78) Troponin I High Sensitivity 18 ng/L (</=34) Test 10/18/24 23:38 White Blood Count 10.5 10^3/uL (4.4-10.8) Red Blood Count 4.05 10^6/uL (4.0-5.20) Hemoglobin 11.0 g/dL (12.2-16.2) Hematocrit 33.8 % (36.0-46.0) Mean Corpuscular Volume 83.5 fL (80.0-100.0) Mean Corpuscular Hemoglobin 27.3 pg (28.0-32.0) Mean Corpuscular Hemoglobin Concent 32.7 g/dL (32.0-36.0) Red Cell Distribution Width 14.9 % (11.8-14.3) Platelet Count 179 10^3/uL (140-450) Mean Platelet Volume 6.8 fL (6.9-10.8) Neutrophils (%) (Auto) 57.4 % (37.0-80.0) Lymphocytes (%) (Auto) 32.9 % (10.0-50.0) Monocytes (%) (Auto) 7.6 % (0.0-12.0) Eosinophils (%) (Auto) 1.4 % (0.0-7.0) Basophils (%) (Auto) 0.7 % (0.0-2.0) Neutrophils # (Auto) 6.0 10 ^3/uL (1.6-8.6) Lymphocytes # (Auto) 3.4 10 ^3/uL (0.4-5.4) Monocytes # (Auto) 0.8 10 ^3/uL (0-1.3) Eosinophils # (Auto) 0.2 10 ^3/uL (0-0.8) Basophils # (Auto) 0.1 10 ^3/uL (0-0.2) Nucleated Red Blood Cells 0.1 % Sodium Level 136 mmol/L (136-145) Potassium Level 4.4 mmol/L (3.5-5.1) Chloride Level 105 mmol/L (98-107) Carbon Dioxide Level 26 mmol/L (20-31) Anion Gap 5 (5-15) Blood Urea Nitrogen 31 mg/dL (9-23) Creatinine 1.74 mg/dL (0.550-1.02) Glomerular Filtration Rate Calc 28 mL/min (>90) BUN/Creatinine Ratio 17.8 (10.0-20.0) Serum Glucose 109 mg/dL (74-106) Calcium Level 9.2 mg/dL (8.7-10.4) Total Bilirubin 0.2 mg/dL (0.2-1.0) Aspartate Amino Transferase (AST) 15 U/L (13-40) Alanine Aminotransferase (ALT) < 9 U/L (7-40) Alkaline Phosphatase 67 U/L (46-116) B-Type Natriuretic Peptide 544.00 pg/mL (0-100) Total Protein 6.2 g/dL (5.7-8.2) Albumin 3.8 g/dL (3.2-4.8) Other Laboratory Tests 10/18/24 23:38 Brief Hx & Hospital Course: Patient was admitted on 10/19/24 for shortness of breath. Patient was previously diagnosed with COVID 19 outpatient. She was experiencing side affects of COVID with general malaise, diarrhea and nausea. No sepsis and no SIRS. No concern for cdiff. Patient has a known history of CKD outpatient and is a pre-diabetic. Labs indicated she was dehydrated and had a soft blood pressure on arrival to the emergency room. A one liter bolus of saline was administered along with a one time dose of IV azithromycin, zofran for nausea and lomotil for diarrhea. Emergency room had concerns for possible atrial fibrillation noted on telemetry. 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 Patient was noted to be in a paced rhythm with no ectopy or signs or arrythmias. Patient had concern for shortness of breath. Patient was place on oxygen at 4 liters in the emergency room with a documented SPO2 of 99%. Acute hypoxic respiratory failure ruled out. Patient was taken off oxygen and SPO2 maintained at 95% on room air. Patient was cleared for discharge by cardiology. Patient was stable on room air and advised to continue Paxlovid which was prescribed prior to admission to hospital and to use albuterol inhaler as needed for shortness of breath. I spoke with patient's PCP at [facility] and they will prescribe Zofran for nausea and will closely follow up with patient. Condition at Discharge: Stable Final Diagnosis/Problems List SOB- on room air doing well Pleuritic chest pain COVID 19 Discharge Disposition: Home SNF Discharge Physician in charge at time of: Dr. Lopes Will this Physician continue t: Yes Discharge Instruct/Medications Diet: Consistent carbohydrate, Cardiac 2g Na,low cholest Activity: strictlyselfquarantine&[id number] Medications: albuterol inhaler Continue Paxlovid as previously prescribed prior to admission Discharge Statement: "Patient was advised to return to the ER or call 911 if any headaches, dizziness, shortness of breath, chest pain, abdominal pain, bleeding, fevers, or worsening of medical condition. Patient was counseled about treatment plan, medications, possible side effects, patientverbalized understanding. All questions were answered to the best of my ability. This discharge took greater then 30 minutes in planning, reviewing documentation, counseling the patient, and discussing with other team members." ASSESSMENT ASSESSMENT Assessment SOB- on room air doing well Pleuritic chest pain COVID 19 JO ORDONEZ NP Oct 20, 2024 12:13
== END 2024-10-19 17:50 | disposition home or self-care (01) | DRG 178 ==
LOC: EDBD 22:52 → ER 22:52 → TELE 22:52
PROVIDERS: ADMIT Nurse Practitioner; ATTEND Nurse Practitioner
DX: U07.1 COVID-19 (principal); I13.0 Hypertensive heart and chronic kidney disease with heart failure and stage 1 through stage 4 chronic kidney disease, or unspecified chronic kidney disease; N17.9 Acute kidney failure, unspecified; I50.32 Chronic diastolic (congestive) heart failure; J06.9 Acute upper respiratory infection, unspecified; I48.91 Unspecified atrial fibrillation; E86.0 Dehydration; I95.0 Idiopathic hypotension; I25.10 Atherosclerotic heart disease of native coronary artery without angina pectoris; E03.9 Hypothyroidism, unspecified; E78.5 Hyperlipidemia, unspecified; I27.20 Pulmonary hypertension, unspecified; N18.9 Chronic kidney disease, unspecified; E66.01 Morbid (severe) obesity due to excess calories; Z68.31 Body mass index [BMI] 31.0-31.9, adult; Z95.2 Presence of prosthetic heart valve; Z79.899 Other long term (current) drug therapy; Z95.1 Presence of aortocoronary bypass graft; Z95.0 Presence of cardiac pacemaker; Z90.49 Acquired absence of other specified parts of digestive tract; Z86.73 Personal history of transient ischemic attack (TIA), and cerebral infarction without residual deficits; Z79.84 Long term (current) use of oral hypoglycemic drugs
CPT/HCPCS: 36415; 80053; 83540; 83550; 83605; 83735; 83880; 84100; 84443; 84484; 85025; 85610; 85730; 87040; 87426; 93005; 94640; G0378; J2405; J3490